=== PATIENT | female | born 1965 | race African-American/Black ===

== ENCOUNTER 2017-06-28 15:11 | Inpatient (IN) | payer BC ==
[~2017-06-28] VITALS: Ht 170.2 cm; Wt 119.0 kg
--- NOTE | 2017-06-28 15:37 | PHYS DOC ---
Adult General Chief Complaint Chief Complaint: SHORTNESS OF BREATH HPI HPI Patient is a 52 year old -[place]ese [place] female who presents with shortness of breath and intermittent chest pain. She states that she's being diagnosed with bronchitis 3 different times in the last 3 months and over the last several weeks she's been filling shortness of breath with a nonproductive cough. She states yesterday she started with substernal chest pain worse with coughing. She denies any nausea vomiting diaphoresis. She is having past medical history of smoking and stopped 6 years ago. She has had a stress test approximately 2 years ago she believes at the [facility]. Review of Systems Review of Systems Constitutional: Denies fever or chills [] Eyes: Denies change in visual acuity, redness, or eye pain [] HENT: Denies nasal congestion or sore throat [] Respiratory: Positive for cough and shortness of breath [] Cardiovascular: No additional information not addressed in HPI [] GI: Denies abdominal pain, nausea, vomiting, bloody stools or diarrhea [] : Denies dysuria or hematuria [] Musculoskeletal: Denies back pain or joint pain [] Integument: Denies rash or skin lesions [] Neurologic: Denies headache, focal weakness or sensory changes [] Endocrine: Denies polyuria or polydipsia [] Current Medications Current Medications Current Medications Medications (Trade) Dose Ordered Sig/Mabel Start Time Stop Time Status Last Admin Dose Admin Aspirin (Colby Aspirin) 325 mg 1X ONCE 06/28/17 17:45 06/28/17 17:46 DC 06/28/17 17:46 325 MG Info (Do NOT chart on this entry -- for MONITORING) 1 each PRN DAILY PRN 06/28/17 18:00 06/30/17 17:59 Iohexol (Omnipaque 350 Mg/ml) 75 ml 1X ONCE 06/28/17 17:45 06/28/17 17:46 DC Morphine Sulfate 2 mg PRN Q15MIN PRN 06/28/17 15:45 06/29/17 15:44 06/28/17 17:05 2 MG Allergies Allergies Allergies Coded Allergies Type Severity Reaction Last Updated Verified Penicillins Allergy Unknown SKIJNH RASH 06/28/17 Yes Sulfa (Sulfonamide Antibiotics) Allergy Unknown SKIN RASH 06/28/17 Yes amoxicillin Allergy Unknown SKIN RASH 06/28/17 Yes cephalexin Allergy Unknown SKIN RASH 06/28/17 Yes Physical Exam Physical Exam Constitutional: Well developed, well nourished, no acute distress, non-toxic appearance. [] HENT: Normocephalic, atraumatic, bilateral external ears normal, oropharynx moist, no oral exudates, nose normal. [] Eyes: PERRLA, EOMI, conjunctiva normal, no discharge. [] Neck: Normal range of motion, no tenderness, supple, no stridor. [] Cardiovascular:Heart rate regular rhythm, no murmur [] Lungs & Thorax: Bilateral breath sounds clear to auscultation [] Abdomen: Bowel sounds normal, soft, no tenderness, no masses, no pulsatile masses. [] Skin: Warm, dry, no erythema, no rash. [] Back: No tenderness, no CVA tenderness. [] Extremities: No tenderness, no cyanosis, no clubbing, ROM intact, no edema. [] Neurologic: Alert and oriented X 3, normal motor function, normal sensory function, no focal deficits noted. [] Psychologic: Affect normal, judgement normal, mood normal. [] Current Patient Data Vital Signs Vital Signs Date Time Temp Pulse Resp B/P (MAP) Pulse Ox O2 Delivery O2 Flow Rate FiO2 06/28/17 17:47 18 97 Room Air 06/28/17 15:16 98.2 91 165/82 (109) 98.2 Lab Values Laboratory Tests Test 06/28/17 15:50 White Blood Count 8.2 x10^3/uL (4.0-11.0) Red Blood Count 4.08 x10^6/uL (3.50-5.40) Hemoglobin 10.1 g/dL (12.0-15.5) L Hematocrit 31.3 % (36.0-47.0) L Mean Corpuscular Volume 77 fL (79-100) L Mean Corpuscular Hemoglobin 25 pg (25-35) Mean Corpuscular Hemoglobin Concent 32 g/dL (31-37) Red Cell Distribution Width 16.1 % (11.5-14.5) H Platelet Count 346 x10^3/uL (140-400) Neutrophils (%) (Auto) 39 % (31-73) Lymphocytes (%) (Auto) 49 % (24-48) H Monocytes (%) (Auto) 7 % (0-9) Eosinophils (%) (Auto) 4 % (0-3) H Basophils (%) (Auto) 2 % (0-3) Neutrophils # (Auto) 3.2 x10^3uL (1.8-7.7) Lymphocytes # (Auto) 4.0 x10^3/uL (1.0-4.8) Monocytes # (Auto) 0.5 x10^3/uL (0.0-1.1) Eosinophils # (Auto) 0.4 x10^3/uL (0.0-0.7) Basophils # (Auto) 0.1 x10^3/uL (0.0-0.2) Prothrombin Time 11.8 SEC (11.7-14.0) Prothrombin Time INR 0.9 (0.8-1.1) D-Dimer (Melanie) 1.74 ug/mlFEU (0.00-0.50) H Sodium Level 142 mmol/L (136-145) Potassium Level 3.8 mmol/L (3.5-5.1) Chloride Level 106 mmol/L (98-107) Carbon Dioxide Level 24 mmol/L (21-32) Anion Gap 12 (6-14) Blood Urea Nitrogen 11 mg/dL (7-20) Creatinine 1.0 mg/dL (0.6-1.0) Estimated GFR (Cockcroft-Gault) 70.2 Glucose Level 85 mg/dL (70-99) Calcium Level 9.1 mg/dL (8.5-10.1) Magnesium Level 1.7 mg/dL (1.8-2.4) L Total Bilirubin 0.5 mg/dL (0.2-1.0) Direct Bilirubin 0.1 mg/dL (0.0-0.2) Aspartate Amino Transferase (AST) 18 U/L (15-37) Alanine Aminotransferase (ALT) 30 U/L (14-59) Alkaline Phosphatase 87 U/L (46-116) Creatine Kinase 264 U/L (26-192) H Creatine Kinase MB (Mass) 3.1 ng/mL (0.0-3.6) Creatine Kinase MB Relative Index 1.2 % (0-4) Troponin I Quantitative 0.022 ng/mL (0.000-0.055) GS-Xtd-A-Type Natriuretic Peptide 817 pg/mL (0-124) H Total Protein 7.2 g/dL (6.4-8.2) Albumin 3.1 g/dL (3.4-5.0) L Lipase 137 U/L (73-393) Thyroid Stimulating Hormone (TSH) 2.062 uIU/mL (0.358-3.74) Laboratory Tests 06/28/17 15:50 Laboratory Tests 06/28/17 15:50 EKG EKG EKG shows sinus rhythm 3-[address] elevations, intraventricular block noted, T-wave inversions appreciated, normal axis, QTC 494 ms, QRS 172 ms , as interpreted by me. Radiology/Procedures Radiology/Procedures [facility] [address] [place] [address] IMAGING REPORT Signed PATIENT: NOAH NEUMANN ACCOUNT: [id number] : 1965 LOCATION: ER AGE: 52 SEX: F EXAM STATUS: PRE ER ORD. PHYSICIAN: ALLYSSA WAGONER MD REASON: SOA PROCEDURE: PORTABLE CHEST 1V Portable chest, 06/28/2017: History: Shortness of breath The heart size and pulmonary vascularity are normal. The lungs are clear. There is no evidence of pleural fluid. IMPRESSION: No acute cardiopulmonary abnormality is detected. DICTATED and SIGNED BY: FARHAT BRADEN MD DATE: 06/28/17 1544 CC: ALLYSSA WAGONER MD ~ Impressions: Chest pain Elevated d-dimer Course & Med Decision Making Course & Med Decision Making Pertinent Labs and Imaging studies reviewed. (See chart for details) EKG is nonacute, she does have left bundle branch morphology on EKG doesn't have any old ones. Dimer is elevated and she is awaiting CT angiogram performed. Patient be admitted to the hospitalist and aspirin has been given. Interim orders have been written. Dragon Disclaimer Dragon Disclaimer This electronic medical record was generated, in whole or in part, using a voice recognition dictation system. Departure Departure Impression: Primary Impression: Chest pain Disposition: ADMITTED INPATIENT Admitting Physician: Cely Garces Condition: STABLE Problem Qualifiers Primary Impression: Chest pain Chest pain type: unspecified Qualified Codes: R07.9 - Chest pain, unspecified ALLYSSA WAGONER MD Jun 28, 2017 15:37
--- NOTE | 2017-06-28 15:38 | EKG ---
[facility] [address] [place] [address] Test Date: 2017-06-28 Test Time: 15:28:06 Pat Name: NOAH NEUMANN Department: Room: Gender: F Manager Commercial: : 1965 Requested By: ALLYSSA WAGONER Order Number: [id number] Reading MD: Niranjan Burroughs Measurements Intervals [place] Rate: 87 P: 38 KS: 170 QRS: 6 QRSD: 172 T: 84 QT: 410 QTc: 494 Interpretive Statements SINUS RHYTHM LEFT BUNDLE BRANCH BLOCK RI6.01 Unconfirmed report No previous ECG available for comparison Electronically Signed On 06-28-2017 17:49:32 CDT by Niranjan Burroughs
--- NOTE | 2017-06-28 15:47 | RAD ---
Portable chest, 06/28/2017: History: Shortness of breath The heart size and pulmonary vascularity are normal. The lungs are clear. There is no evidence of pleural fluid. IMPRESSION: No acute cardiopulmonary abnormality is detected.
[2017-06-28 16:06] LABS: BASO # 0.1 x10^3/uL (0.0-0.2); BASO % 2 % (0-3); EOS % 4 % (0-3); HEMATOCRIT 31.3 % (36.0-47.0); HEMOGLOBIN 10.1 g/dL (12.0-15.5); LYMPH % 49 % (24-48); MEAN CORPUSCULAR HEMOGLOBIN 25 pg (25-35); MEAN CORPUSCULAR HGB CONC 32 g/dL (31-37); MEAN CORPUSCULAR VOLUME 77 fL (79-100); MONO % 7 % (0-9); NEUT % 39 % (31-73); PLATELET COUNT 346 x10^3/uL (140-400); RED BLOOD COUNT 4.08 x10^6/uL (3.50-5.40); RED CELL DISTRIBUTION WIDTH 16.1 % (11.5-14.5); WHITE BLOOD COUNT 8.2 x10^3/uL (4.0-11.0)
[2017-06-28] MEDS: MORPHINE SULFATE 2 MG/ML DISP.SYRIN. IV/SQ PRN ×2 (16:11→17:05)
[2017-06-28 16:15] LABS: INR 0.9 (0.8-1.1); PROTHROMBIN TIME PATIENT 11.8 SEC (11.7-14.0)
[2017-06-28 16:24] LABS: CALCIUM 9.1 mg/dL (8.5-10.1); GFR 70.2; POTASSIUM 3.8 mmol/L (3.5-5.1)
[2017-06-28 16:28] LABS: ALBUMIN 3.1 g/dL (3.4-5.0); DIRECT BILIRUBIN 0.1 mg/dL (0.0-0.2); MAGNESIUM 1.7 mg/dL (1.8-2.4); TOTAL BILIRUBIN 0.5 mg/dL (0.2-1.0); TOTAL PROTEIN 7.2 g/dL (6.4-8.2)
[2017-06-28 16:35] LABS: CKMB MASS 3.1 ng/mL (0.0-3.6)
[2017-06-28] MEDS ORDERED: ASPIRIN 325 MG TABLET PO ONE (17:45)
[2017-06-28] MEDS ORDERED: IOHEXOL 350 MG/ML 75ML VIAL. IV ONE (17:45)
[2017-06-28] MEDS ORDERED: CONTRAST GIVEN MC PRN (18:00)
[2017-06-28] MEDS ORDERED: MORPHINE SULFATE 2 MG/ML DISP.SYRIN. IV PRN (18:15)
[2017-06-28] MEDS ORDERED: ONDANSETRON PF 4 MG/2 ML VIAL. IV PRN (18:15)
[2017-06-28] MEDS ORDERED: IOHEXOL 350 MG/ML 100 ML VIAL. IV ONE (18:30)
--- NOTE | 2017-06-28 19:15 | RAD ---
Chest CTA History: Shortness of air, chest pain Technique: After bolus of intravenous contrast, CT imaging was performed of the chest. Multiplanar reconstruction images to include MIP reconstruction images are submitted. Exposure: One or more of the following individualized dose reduction techniques were utilized for this examination: 1. Automated exposure control 2. Adjustment of the mA and/or kV according to patient size 3. Use of iterative reconstruction technique. Contrast: 75 cc Isovue-370 Comparison: None Findings: [ Contrast opacification of the pulmonary arteries is suboptimal. There is suggestion of a small filling defect of subsegmental left lower lobe posterior basal branch as seen on axial image 75 series 3. There are small dependent pleural effusions bilaterally. There is no pneumothorax. Major airways are patent. Normal left kidney is not visualized on this exam. Thoracic aortic caliber is within normal limits without intraluminal flap. No significant lymphadenopathy is identified of the chest. There is possible 0.6 cm right lower lobe pulmonary nodule axial image 108 series 3. Impression: 1. Accurate evaluation for pulmonary embolic disease is limited due to poor contrast opacification of the pulmonary arteries. There is a questionable filling defect of subsegmental branch of the posterior basal left lower lobe although poorly characterized. Attempt at repeat exam or ventilation/perfusion exam could be beneficial if clinically needed. 2. There are small dependent pleural effusions bilaterally. 3. Normal left kidney is not seen on this exam. 4. There is possible small incidental right lower lobe pulmonary nodule up to 0.6 cm. 6-12 month follow-up is recommended as per Fleischner guidelines. FOR INTERNAL CODING PURPOSES Critical result: Findings discussed with Dr. Bowman at 06/28/2017 7:11 PM. RESULT CODE: (C) Electronically signed by: Ashok Hickman MD (06/28/2017 7:12 PM) [facility]
[2017-06-28 19:30] VITALS: BP 145/70
[2017-06-28] MEDS ORDERED: METF-620 PO (20:42)
[2017-06-28] MEDS ORDERED: INSU100I13 SQ (20:42)
[2017-06-28] MEDS ORDERED: MELO15TA23 PO (20:42)
[2017-06-28] MEDS ORDERED: INSU100V31 SQ (20:42)
[2017-06-28] MEDS ORDERED: SIMV10TA PO (20:42)
[2017-06-28] MEDS ORDERED: INSU100C4 SQ (20:42)
[2017-06-28] MEDS ORDERED: LEXAPRO20 MG PO (20:42)
[2017-06-28] MEDS ORDERED: ESOM40CA PO (20:42)
[2017-06-28] MEDS ORDERED: LISI40TA PO (20:42)
[2017-06-28] MEDS ORDERED: METF500T4 PO (20:42)
[2017-06-28] MEDS ORDERED: LACT1CAP6 PO (20:47)
[2017-06-28] MEDS ORDERED: HYDR-2762 PO (20:47)
[2017-06-28] MEDS ORDERED: LORA0.5T96 PO (20:47)
[2017-06-28] MEDS ORDERED: BIOT1CAP3 PO (20:47)
[2017-06-28] MEDS ORDERED: LORazepam 0.5 MG TABLET PO PRN (21:30)
[2017-06-28] MEDS ORDERED: NON FORMULARY ITEM (Biotin 1 MG) PO PRN (21:30)
[2017-06-28] MEDS ORDERED: HYDROcodone/CHLORPHEN POLIS 5 ML SUS.ER.12H PO PRN (21:30)
--- NOTE | 2017-06-28 21:34 | PDOC1 ---
History and Physical Date of Admission Date of Admission DATE: 06/28/17 TIME: 21:25 History of Present Illness History of Present Illness Ms. Bell, is a 52 year old -[place]ronesian [place]ron[place] female admit with with acute chest pain and shortness of breath. Over the past 2 days, intermittent chest pain mid-sternal with pressure. She starts her story in March with a cough, PCP gave her abx, then better, then cough, given Z-pack, then better, then another round of abx again due to cough. THen new worsening orthopnea this past week, up to 3 pillows, no LE edema, and new mid-sternal chest pain with pressure. diagnosed with bronchitis 3 different times in the last 3 months, her GERD has thought to been stable, EGD by Dr. Diop 2 years ago was clear, She denies any nausea vomiting diaphoresis. Past Medical History Cardiovascular: HTN Pulmonary: Bronchitis Endocrine: Diabetes Past Surgical History Past Surgical History: No pertinent history Family History Family History: Alzheimer's Disease, Diabetes, Hypertension Family History: Parent Social History Smoke: Quit ALCOHOL: rare Drugs: None Current Medications Current Medications Current Medications Morphine Sulfate 2 mg PRN Q15MIN PRN IV/SQ PAIN GREATER THAN 3/10 Last administered on 06/28/17 17:05; Start 06/28/17 at 15:45; Stop 06/29/17 at 15:44 Aspirin (Colby Aspirin) 325 mg 1X ONCE PO Last administered on 06/28/17 17:46 ; Start 06/28/17 at 17:45; Stop 06/28/17 at 17:46; Status DC Iohexol (Omnipaque 350 Mg/ml) 75 ml 1X ONCE IV Last administered on 06/28/17 17:45; Start 06/28/17 at 17:45; Stop 06/28/17 at 17:46; Status DC Info (Do NOT chart on this entry -- for MONITORING) 1 each PRN DAILY PRN MC SEE COMMENTS; Start 06/28/17 at 18:00; Stop 06/30/17 at 17:59 Ondansetron HCl (Zofran) 4 mg PRN Q8HRS PRN IV NAUSEA/VOMITING; Start 06/28/17 at 18:15; Stop 06/29/17 at 18:14 Morphine Sulfate 2 mg PRN Q2HR PRN IV PAIN; Start 06/28/17 at 18:15; Stop at 18:14 Iohexol (Omnipaque 350 Mg/ml) 75 ml 1X ONCE IV Last administered on 06/28/17t 18:47; Start 06/28/17 at 18:30; Stop 06/28/17 at 18:31; Status DC Pneumococcal Polyvalent Vaccine (Do NOT chart on this placeholder) 0.1 each 1X ONCE MC ; Start 06/29/17 at 09:00; Stop 06/29/17 at 09:01; Status UNV Pneumococcal Polyvalent Vaccine (Pneumovax 23) 0.5 ml ONCE ONCE VAX IM ; Start 06/29/17 at 09:00; Stop 06/29/17 at 09:01 Active Scripts Active Reported Probiotic (Lactobacillus Acidophilus) 1 Each Capsule 1 Each PO PRN DAILY PRN Biotin 1 Mg Capsule 1 Mg PO PRN DAILY PRN Ativan (Lorazepam) 0.5 Mg Tablet 0.5 Mg PO PRN BID PRN Hydrocodone-Apap 7.5-325 (Hydrocodone Bit/Acetaminophen) 1 Each Tablet 1 Tab PO PRN BID PRN Lexapro (Escitalopram Oxalate) 20 Mg Tablet 40 Mg PO HS Zocor (Simvastatin) 10 Mg Tablet 10 Mg PO HS Novolog (Insulin Aspart) 100 Unit/1 Ml Vial 10 Unit SQ HS Novolog (Insulin Aspart) 100 Unit/1 Ml Cartridge 15 Unit SQ TIDAC Meloxicam 15 Mg Tablet 15 Mg PO HS Lantus Solostar (Insulin Glargine,Hum.rec.anlog) 100 Unit/1 Ml Insuln.pen 85 Unit SQ HS Nexium Capsule (Esomeprazole Magnesium) 40 Mg Capsule.dr 1 Cap PO DAILY Lisinopril 40 Mg Tablet 1 Tab PO DAILY Metformin Hcl 500 Mg Tablet 500 Mg PO DAILY08 Metformin Hcl 1,000 Mg Tablet 1,000 Mg PO DAILYWBKFT Allergies Allergies: Coded Allergies: Penicillins (Verified Allergy, Unknown, SKIJNH RASH, 06/28/17) Sulfa (Sulfonamide Antibiotics) (Verified Allergy, Unknown, SKIN RASH, ) amoxicillin (Verified Allergy, Unknown, SKIN RASH, 06/28/17) cephalexin (Verified Allergy, Unknown, SKIN RASH, 06/28/17) ROS General: No: Chills, Night Sweats, Malaise, Appetite, Other PSYCHOLOGICAL ROS: No: Anxiety, Behavioral Disorder, Concentration difficultie , Decreased libido, Depression, Disorientation, Hallucinations, Hostility, Irritablity, Memory difficulties, Mood Swings, Obsessive thoughts, Physical abuse, Sexual abuse, Sleep disturbances, Suicidal ideation, Other Eyes: No Blurry vision, No Decreased vision, No Double vision, No Dry eyes, No Excessive tearing, No Eye Pain, No Itchy Eyes, No Loss of vision, No Photophobia , No Scotomata, No Uses contacts, No Uses glasses, No Other HEENT: No: Heacaches, Visual Changes, Hearing change, Nasal congestion, Nasal discharge, Oral lesions, Sinus pain, Sore Throat, Epistaxis, Sneezing, Snoring, Tinnitus, Vertigo, Vocal changes, Other Respiratory: YES: Cough, Orthopnea, SOB with excertion, No: Hemoptysis, Pleuritic Pain, Shortness of breath, Sputum Changes, Stridor , Tachypnea, Wheezing, Other Cardiovascular: yes Chest Pain, No Palpitations, No Orthopnea, No Paroxysmal Noc. Dyspnea, No Edema, No Lt Headedness, No Other Gastrointestinal: Yes Abdominal Pain, No Nausea, No Vomiting, No Diarrhea, No Constipation, No Melena, No Hematochezia, No Other Genitourinary: No Dysuria, No Frequency, No Incontinence, No Hematuria, No Retention, No Discharge, No Urgency, No Pain, No Flank Pain, No Other, No , No , No , No , No , No , No Musculoskeletal: No Gait Disturbance, No Joint Pain, No Joint Stiffness, No Joint Swelling, No Muscle Pain, No Muscular Weakness, No Pain In:, No Swelling In:, No Other Neurological: No Behavorial Changes, No Bowel/Bladder ControlChng, No Confusion , No Dizziness, No Gait Disturbance, No Headaches, No Impaired Coord/balance, No Memory Loss, No Numbness/Tingling, No Seizures, No Speech Problems, No Tremors, No Visual Changes, No Weakness, No Other Skin: No Dry Skin, No Eczema, No Hair Changes, No Lumps, No Mole Changes, No Mottling, No Nail Changes, No Pruritus, No Rash, No Skin Lesion Changes, No Other, No Acne Physical Exam General: Alert, Oriented X3, Cooperative HEENT: Atraumatic, PERRLA Lungs: Clear to auscultation Heart: S1S2 Abdomen: Normal bowel sounds, Soft (obese, mod tender epigastrum, no guarding) Extremities: No clubbing, No cyanosis Skin: No rashes, No breakdown Neuro: Normal speech, Normal tone, Sensation intact, Cranial nerves 3-12 NL Psych/Mental Status: Mental status NL, Mood NL Vitals Vitals Vital Signs Date Time Temp Pulse Resp B/P (MAP) Pulse Ox O2 Delivery O2 Flow Rate FiO2 06/28/17 19:30 97.9 84 18 145/70 (95) 98 Room Air 97.9 Labs Labs Laboratory Tests Test 06/28/17 15:50 White Blood Count 8.2 x10^3/uL (4.0-11.0) Red Blood Count 4.08 x10^6/uL (3.50-5.40) Hemoglobin 10.1 g/dL (12.0-15.5) Hematocrit 31.3 % (36.0-47.0) Mean Corpuscular Volume 77 fL (79-100) Mean Corpuscular Hemoglobin 25 pg (25-35) Mean Corpuscular Hemoglobin Concent 32 g/dL (31-37) Red Cell Distribution Width 16.1 % (11.5-14.5) Platelet Count 346 x10^3/uL (140-400) Neutrophils (%) (Auto) 39 % (31-73) Lymphocytes (%) (Auto) 49 % (24-48) Monocytes (%) (Auto) 7 % (0-9) Eosinophils (%) (Auto) 4 % (0-3) Basophils (%) (Auto) 2 % (0-3) Neutrophils # (Auto) 3.2 x10^3uL (1.8-7.7) Lymphocytes # (Auto) 4.0 x10^3/uL (1.0-4.8) Monocytes # (Auto) 0.5 x10^3/uL (0.0-1.1) Eosinophils # (Auto) 0.4 x10^3/uL (0.0-0.7) Basophils # (Auto) 0.1 x10^3/uL (0.0-0.2) Prothrombin Time 11.8 SEC (11.7-14.0) Prothromb Time International Ratio 0.9 (0.8-1.1) D-Dimer (Melanie) 1.74 ug/mlFEU (0.00-0.50) Sodium Level 142 mmol/L (136-145) Potassium Level 3.8 mmol/L (3.5-5.1) Chloride Level 106 mmol/L (98-107) Carbon Dioxide Level 24 mmol/L (21-32) Anion Gap 12 (6-14) Blood Urea Nitrogen 11 mg/dL (7-20) Creatinine 1.0 mg/dL (0.6-1.0) Estimated GFR (Cockcroft-Gault) 70.2 Glucose Level 85 mg/dL (70-99) Calcium Level 9.1 mg/dL (8.5-10.1) Magnesium Level 1.7 mg/dL (1.8-2.4) Total Bilirubin 0.5 mg/dL (0.2-1.0) Direct Bilirubin 0.1 mg/dL (0.0-0.2) Aspartate Amino Transf (AST/SGOT) 18 U/L (15-37) Alanine Aminotransferase (ALT/SGPT) 30 U/L (14-59) Alkaline Phosphatase 87 U/L (46-116) Creatine Kinase 264 U/L (26-192) Creatine Kinase MB (Mass) 3.1 ng/mL (0.0-3.6) Creatine Kinase MB Relative Index 1.2 % (0-4) Troponin I Quantitative 0.022 ng/mL (0.000-0.055) HT-Opk-V-Type Natriuretic Peptide 817 pg/mL (0-124) Total Protein 7.2 g/dL (6.4-8.2) Albumin 3.1 g/dL (3.4-5.0) Lipase 137 U/L (73-393) Thyroid Stimulating Hormone (TSH) 2.062 uIU/mL (0.358-3.74) Laboratory Tests Test 06/28/17 15:50 White Blood Count 8.2 x10^3/uL (4.0-11.0) Red Blood Count 4.08 x10^6/uL (3.50-5.40) Hemoglobin 10.1 g/dL (12.0-15.5) Hematocrit 31.3 % (36.0-47.0) Mean Corpuscular Volume 77 fL (79-100) Mean Corpuscular Hemoglobin 25 pg (25-35) Mean Corpuscular Hemoglobin Concent 32 g/dL (31-37) Red Cell Distribution Width 16.1 % (11.5-14.5) Platelet Count 346 x10^3/uL (140-400) Neutrophils (%) (Auto) 39 % (31-73) Lymphocytes (%) (Auto) 49 % (24-48) Monocytes (%) (Auto) 7 % (0-9) Eosinophils (%) (Auto) 4 % (0-3) Basophils (%) (Auto) 2 % (0-3) Neutrophils # (Auto) 3.2 x10^3uL (1.8-7.7) Lymphocytes # (Auto) 4.0 x10^3/uL (1.0-4.8) Monocytes # (Auto) 0.5 x10^3/uL (0.0-1.1) Eosinophils # (Auto) 0.4 x10^3/uL (0.0-0.7) Basophils # (Auto) 0.1 x10^3/uL (0.0-0.2) Prothrombin Time 11.8 SEC (11.7-14.0) Prothromb Time International Ratio 0.9 (0.8-1.1) D-Dimer (Melanie) 1.74 ug/mlFEU (0.00-0.50) Sodium Level 142 mmol/L (136-145) Potassium Level 3.8 mmol/L (3.5-5.1) Chloride Level 106 mmol/L (98-107) Carbon Dioxide Level 24 mmol/L (21-32) Anion Gap 12 (6-14) Blood Urea Nitrogen 11 mg/dL (7-20) Creatinine 1.0 mg/dL (0.6-1.0) Estimated GFR (Cockcroft-Gault) 70.2 Glucose Level 85 mg/dL (70-99) Calcium Level 9.1 mg/dL (8.5-10.1) Magnesium Level 1.7 mg/dL (1.8-2.4) Total Bilirubin 0.5 mg/dL (0.2-1.0) Direct Bilirubin 0.1 mg/dL (0.0-0.2) Aspartate Amino Transf (AST/SGOT) 18 U/L (15-37) Alanine Aminotransferase (ALT/SGPT) 30 U/L (14-59) Alkaline Phosphatase 87 U/L (46-116) Creatine Kinase 264 U/L (26-192) Creatine Kinase MB (Mass) 3.1 ng/mL (0.0-3.6) Creatine Kinase MB Relative Index 1.2 % (0-4) Troponin I Quantitative 0.022 ng/mL (0.000-0.055) JR-Bxh-O-Type Natriuretic Peptide 817 pg/mL (0-124) Total Protein 7.2 g/dL (6.4-8.2) Albumin 3.1 g/dL (3.4-5.0) Lipase 137 U/L (73-393) Thyroid Stimulating Hormone (TSH) 2.062 uIU/mL (0.358-3.74) VTE Prophylaxis Ordered VTE Prophylaxis Devices: No VTE Pharmacological Prophylaxi: Yes Assessment/Plan Assessment/Plan Angina, chest pain with dyspnea and orthopnea, consult CV, check Echo CTA negative consult pulm for chronic cough, GERD, could be exacerbating the cough, cont PPI, EGD was a couple years ago , may need outpatient f/u morbid obesity, BMI 41 Dm2, large doses on insulin depression, on SSRI anemia, microcytic, check iron levels, she reports normal colonoscopy 2 years ago admit FAISAL MALHOTRA MD Jun 28, 2017 21:34
[2017-06-28] MEDS ORDERED: MAGNESIUM SULFATE 2GM 50 ML IV ONE (21:45)
[2017-06-28] MEDS ORDERED: IPRATRPIUM/ALBUTEROL 0.5/2.5MG 3 ML NEBU. NEB ONE (21:45)
[2017-06-28] MEDS ORDERED: ENOXAPARIN 40 MG/0.4 ML SYRINGE. SQ SCH (22:00)
[2017-06-28] MEDS: HYDROcodone/APAP 7.5/325MG 1 TAB TABLET PO PRN (22:18)
[2017-06-28] MEDS: ESCITALOPRAM 10 MG TABLET. PO SCH (22:20)
[2017-06-28] MEDS: INSULIN DETEMIR 300 UNITS/3 ML INSULN.PEN. SQ SCH (22:39)
[2017-06-28] MEDS: INSULIN ASPART 300 UNITS/3 ML INSULN.PEN SQ SCH (22:39)
[2017-06-28 23:30] VITALS: BP 137/57
[2017-06-29] VITALS (7 sets, daily range): BP systolic 117–144; BP diastolic 56–73
--- NOTE | 2017-06-29 04:49 | ACF ---
Admission Forms Criteria CHEST PAIN Clinical Indications for Admission to Inpatient Care (Place 'X' for any and all applicable criteria): Admission is indicated for chest pain and ANY ONE of the following(1)(2)(3)(4)(5 ): [ ]I. Angina with acute coronary syndrome (Also use Myocardial Infarction or Angina guideline) [ ]II. Hemodynamic instability [ ]III. Angina needing acute intervention as indicated by ALL of the following( 11)(12): [ ]a) Unstable angina is present as indicated by angina that is ANY ONE of the following: [ ]i) New onset [ ]ii) Nocturnal [ ]iii) Prolonged at rest [ ]iv) Progressive [ ]b) Angina warrants acute intervention as indicated by ANY ONE of the following: [ ]i) Recurrent angina (e.g, not responding as previously to treatment) [ ]ii) Angina at rest or with low-level activities despite initial medical therapy [ ]iii) New or presumably new ST-segment depression on ECG [ ]iv) Signs or symptoms of heart failure (eg, dyspnea, pulmonary edema) [ ]v) New or worsening mitral regurgitation [ ]vi) Hemodynamic instability [ ]vii) Dangerous arrhythmia (eg, sustained ventricular tachycardia) [ ]viii) History of percutaneous coronary intervention within 6 months [ ]ix) History of coronary artery bypass graft surgery [ ]x) ALEXSANDER risk score of 2 or greater[A] [ ]xi) History of Diabetes(14) [ ]xii) High-risk cardiac ischemia findings on noninvasive testing (e.g, echocardiogram, treadmill testing, nuclear scan) [ ]xiii) Chronic renal insufficiency (ie, estimated GFR less than 60 mL/min/1.732m) [ ]xiv) Left ventricular ejection fraction less than 40% [ ]IV. Evidence of WI (eg, cardiac biomarkers positive, ST-segment elevation on ECG) also use Myocardial Infarction Criteria Form. [ ]V. Pulmonary edema [ ]. Respiratory distress [ ]VII. Chest pain indicative of serious diagnosis other than coronary artery disease (eg, aortic dissection) [ ]VIII. Contraindications and/or Inappropriate clinical situations for Observational Care in patients with Chest Pain, when ANY ONE of the following is required: [ ]a) Patient with risk factor for pulmonary embolism, acute coronary syndrome and myocardial infarction (18) [ ]b) Patient with Pulmonary embolism require an average LOS of 4.3 days, therefore emergency department observation management is inappropriate 18,23 [ ]c) Painful condition/s in the elderly, have the highest rate of recidivism after emergency department observation management (10.8%) 20,21,22 [ ]d) Elevated cardiac biomarker requires intensive and exhaustive care (19) [X]IX. General contraindications and/or Inappropriate clinical situations for Observational Care in patients with Chest Pain, when ANY ONE of the following is required: [X]a) Prediction of prolongation of LOS based on ANY ONE of the following may be considered as a contraindication for observational care 2, 3, 4, 5, 6, 7, 8, 9, 10, 11 [ ]i) Age > 65 yrs. [ ]ii) Patient arriving by ambulance [ ]iii) Patient with high acuity [X]iv) Patient requiring vital sign monitoring [ ]v) Patient on IV medication [ ]b) Systolic blood pressures 180mmHg 3,12 [ ]c) Patient with altered mental status including delirium and other alteration of consciousness, (3) [ ]d) Patient whose discharge disposition will be to a fdc home or rehabilitation home should not be managed in Emergency Department Observation Unit. CMS rule requires 3 days hospital stay before such placement. 3,13 [ ]e) Patient with failure to thrive due to broad array of etiologies 3,16,17 [ ]f) Inability to ambulate 3,14 Extended stay beyond goal length of stay may be needed for (1)(28): [ ]a) Specific condition diagnosed after evaluation (eg, pulmonary embolism, aortic dissection) [ ]b) Unstable angina [ ]c) Continued suspicion of acute coronary syndrome with inability to complete needed cardiac evaluation (eg, patient clinically unable to undergo stress testing) [ ]d) Myocardial infarction (Contents from ANGINA and CHEST PAIN clinical indications for admission to inpatient care have been integrated in this form) The original [email or web address] content created by [employer] has been revised. The portions of the content which have been revised are identified through the use of italic text or in bold, and [email or web address] has neither reviewed nor approved the modified material. All other unmodified content is copyright [email or web address]. Please see references footnoted in the original [email or web address] edition 2016 Admission Criteria Met?: Yes RAJ VILLALOBOS Jun 29, 2017 04:49
[2017-06-29 06:27] LABS: BASO # 0.1 x10^3/uL (0.0-0.2); BASO % 1 % (0-3); EOS % 5 % (0-3); HEMATOCRIT 29.9 % (36.0-47.0); HEMOGLOBIN 9.3 g/dL (12.0-15.5); LYMPH # 4.1 x10^3/uL (1.0-4.8); LYMPH % 50 % (24-48); MEAN CORPUSCULAR HEMOGLOBIN 25 pg (25-35); MEAN CORPUSCULAR HGB CONC 31 g/dL (31-37); MEAN CORPUSCULAR VOLUME 79 fL (79-100); MONO % 6 % (0-9); NEUT % 38 % (31-73); PLATELET COUNT 313 x10^3/uL (140-400); RED BLOOD COUNT 3.77 x10^6/uL (3.50-5.40); RED CELL DISTRIBUTION WIDTH 16.3 % (11.5-14.5); WHITE BLOOD COUNT 8.1 x10^3/uL (4.0-11.0)
[2017-06-29 06:46] LABS: CALCIUM 8.2 mg/dL (8.5-10.1); GFR 70.2; POTASSIUM 4.2 mmol/L (3.5-5.1)
[2017-06-29 06:53] LABS: % SAT IRON 9 % (15-34); IRON,SERUM 29 ug/dL (50-170)
[2017-06-29 07:03] LABS: CHOLESTEROL/HDL RATIO 4.1
[2017-06-29] MEDS: IPRATRPIUM/ALBUTEROL 0.5/2.5MG 3 ML NEBU. NEB SCH ×4 (07:50→19:42)
[2017-06-29] MEDS ORDERED: PNEUMOC CONJ VACC 23-VALENT 0.5 ML VIAL. VAX IM ONE (09:00)
[2017-06-29] MEDS ORDERED: PNEUMOCOCCAL VAX SCREEN BY RX. MC ONE (09:00)
[2017-06-29] MEDS: INSULIN ASPART 300 UNITS/3 ML INSULN.PEN SQ SCH ×4 (09:42→21:00)
[2017-06-29] MEDS: PANTOPRAZOLE 40 MG TABLET.DR. PO SCH (09:43)
[2017-06-29] MEDS: LISINOPRIL 40 MG TABLET. PO SCH (09:44)
--- NOTE | 2017-06-29 09:54 | PDOC2 ---
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 Reports that she just came back from [place] with [address] was no complain of leg pain, increased swelling. She is post menopausal without HRT, and denies any prior VTEs. When she was finally back, she reports that in the last few weeks her endurance has gone down. She thinks because she stopped exercising. She reports no bleeding history or PUD but notable for GERD. She has been coughing at night lately and she has been compliant with her PPI. No prior workup for sleep apnea. Positive for HTN, HLP , DM2, anemia and morbid obesity. In addition to persisting mid chest pressure she has been having KEYES which then progressed to SOA at rest. Denies no daily ASA due to use of meloxicam. She did have stress test in 2014 which did not show any issues that would warrant a LHC although she was told at that time that she has LBBB during the test. Denies any recent falls, injury. She also had recent sinusitis treated about 2 weeks ago with doxycycline with no steroid use. Denies any asthma or tobaccoism. No hx of CAD or any valvular disease. PAST MEDICAL HISTORY Cardiovascular: HTN, Hyperlipidemia Pulmonary: No pertinent hx CENTRAL NERVOUS SYSTEM: Other (No pertinent history) GI: GERD Heme/Onc: Anemia NOS Hepatobiliary: No pertinent hx Psych: Anxiety Musculoskeletal: Osteoarthritis, Other (morbid obesity) Rheumatologic: No pertinent hx Infectious disease: No pertinent hx ENT: Sincusitis, Allergic Rhinitis PAST SURGICAL HISTORY Past Surgical History: Tubal Ligation, Other (uterine ablation; EGD 2014 with gastritis) FAMILY HISTORY Family History: Diabetes (mother) SOCIAL HISTORY Smoke: No ALCOHOL: none Drugs: None Lives: with Family CURRENT MEDICATIONS CURRENT MEDICATIONS Current Medications Medications (Trade) Dose Ordered Sig/Mabel Route PRN Reason Start Time Stop Time Status Last Admin Dose Admin Morphine Sulfate 2 mg PRN Q15MIN PRN IV/SQ PAIN GREATER THAN 3/10 06/28/17 15:45 06/29/17 15:44 06/28/17 17:05 Aspirin (Colby Aspirin) 325 mg 1X ONCE PO 06/28/17 17:45 06/28/17 17:46 DC 06/28/17 17:46 Iohexol (Omnipaque 350 Mg/ml) 75 ml 1X ONCE IV 06/28/17 17:45 06/28/17 17:46 DC 06/28/17 17:45 Iohexol (Omnipaque 350 Mg/ml) 75 ml 1X ONCE IV 06/28/17 18:30 06/28/17 18:31 DC 06/28/17 18:47 Acetaminophen/ Hydrocodone Bitart (Lortab 7.5/325) 1 tab PRN BID PRN PO PAIN 06/28/17 21:30 06/28/17 22:18 Insulin Aspart (NovoLOG) 10 units HS SQ 06/28/17 22:00 06/28/17 22:39 Escitalopram Oxalate (Lexapro) 40 mg HS PO 06/28/17 22:00 06/28/17 22:20 Insulin Detemir (Levemir) 45 units QHS SQ 06/28/17 22:00 06/28/17 22:39 Magnesium Sulfate/ Dextrose 50 ml @ 25 mls/hr 1X ONCE IV 06/28/17 21:45 06/28/17 23:44 DC 06/28/17 22:17 Albuterol/ Ipratropium (Duoneb) 3 ml RTQID NEB 06/29/17 08:00 06/29/17 07:50 Albuterol/ Ipratropium (Duoneb) 3 ml 1X ONCE NEB 06/28/17 21:45 06/28/17 21:46 DC 06/28/17 22:07 Enoxaparin Sodium (Lovenox 40mg Syringe) 40 mg Q24H SQ 06/28/17 22:00 06/28/17 22:19 ALLERGIES ALLERGIES: Coded Allergies: Penicillins (Verified Allergy, Unknown, SKIN RASH, 06/29/17) Sulfa (Sulfonamide Antibiotics) (Verified Allergy, Unknown, SKIN RASH, ) amoxicillin (Verified Allergy, Unknown, SKIN RASH, 06/28/17) cephalexin (Verified Allergy, Unknown, SKIN RASH, 06/28/17) ROS Review of System 14 point ROS evaluated with pertinent positives noted per HPI PHYSICAL EXAM General: Alert, Oriented X3, Cooperative, No acute distress HEENT: Atraumatic, Mucous membr. moist/pink Lungs: Clear to auscultation, Normal air movement Heart: Regular rate (SR), Normal S1, Normal S2, Other (2/6 systolic murmur to SHANNAN and LLS border) Abdomen: Soft, Other (truncal obese) Extremities: No cyanosis, Other (1+ bilateral LE pitting edema) Skin: No breakdown, No significant lesion Neuro: Normal speech, Sensation intact Psych/Mental Status: Mental status NL, Mood NL MUSCULOSKELETAL: Osteoarthritic changes both hands VITALS VITALS Vital Signs Date Time Temp Pulse Resp B/P (MAP) Pulse Ox O2 Delivery O2 Flow Rate FiO2 06/29/17 07:50 97 Room Air 06/29/17 07:00 98.0 79 20 117/56 (76) 98.0 LABS Lab: Laboratory Tests Test 06/28/17 15:50 06/28/17 21:20 06/29/17 00:15 06/29/17 06:05 White Blood Count 8.2 x10^3/uL (4.0-11.0) 8.1 x10^3/uL (4.0-11.0) Red Blood Count 4.08 x10^6/uL (3.50-5.40) 3.77 x10^6/uL (3.50-5.40) Hemoglobin 10.1 g/dL (12.0-15.5) 9.3 g/dL (12.0-15.5) Hematocrit 31.3 % (36.0-47.0) 29.9 % (36.0-47.0) Mean Corpuscular Volume 77 fL (79-100) 79 fL (79-100) Mean Corpuscular Hemoglobin 25 pg (25-35) 25 pg (25-35) Mean Corpuscular Hemoglobin Concent 32 g/dL (31-37) 31 g/dL (31-37) Red Cell Distribution Width 16.1 % (11.5-14.5) 16.3 % (11.5-14.5) Platelet Count 346 x10^3/uL (140-400) 313 x10^3/uL (140-400) Neutrophils (%) (Auto) 39 % (31-73) 38 % (31-73) Lymphocytes (%) (Auto) 49 % (24-48) 50 % (24-48) Monocytes (%) (Auto) 7 % (0-9) 6 % (0-9) Eosinophils (%) (Auto) 4 % (0-3) 5 % (0-3) Basophils (%) (Auto) 2 % (0-3) 1 % (0-3) Neutrophils # (Auto) 3.2 x10^3uL (1.8-7.7) 3.1 x10^3uL (1.8-7.7) Lymphocytes # (Auto) 4.0 x10^3/uL (1.0-4.8) 4.1 x10^3/uL (1.0-4.8) Monocytes # (Auto) 0.5 x10^3/uL (0.0-1.1) 0.5 x10^3/uL (0.0-1.1) Eosinophils # (Auto) 0.4 x10^3/uL (0.0-0.7) 0.4 x10^3/uL (0.0-0.7) Basophils # (Auto) 0.1 x10^3/uL (0.0-0.2) 0.1 x10^3/uL (0.0-0.2) Prothrombin Time 11.8 SEC (11.7-14.0) Prothromb Time International Ratio 0.9 (0.8-1.1) D-Dimer (Melanie) 1.74 ug/mlFEU (0.00-0.50) Sodium Level 142 mmol/L (136-145) 139 mmol/L (136-145) Potassium Level 3.8 mmol/L (3.5-5.1) 4.2 mmol/L (3.5-5.1) Chloride Level 106 mmol/L (98-107) 106 mmol/L (98-107) Carbon Dioxide Level 24 mmol/L (21-32) 25 mmol/L (21-32) Anion Gap 12 (6-14) 8 (6-14) Blood Urea Nitrogen 11 mg/dL (7-20) 13 mg/dL (7-20) Creatinine 1.0 mg/dL (0.6-1.0) 1.0 mg/dL (0.6-1.0) Estimated GFR (Cockcroft-Gault) 70.2 70.2 Glucose Level 85 mg/dL (70-99) 152 mg/dL (70-99) Calcium Level 9.1 mg/dL (8.5-10.1) 8.2 mg/dL (8.5-10.1) Magnesium Level 1.7 mg/dL (1.8-2.4) Total Bilirubin 0.5 mg/dL (0.2-1.0) Direct Bilirubin 0.1 mg/dL (0.0-0.2) Aspartate Amino Transf (AST/SGOT) 18 U/L (15-37) Alanine Aminotransferase (ALT/SGPT) 30 U/L (14-59) Alkaline Phosphatase 87 U/L (46-116) Creatine Kinase 264 U/L (26-192) Creatine Kinase MB (Mass) 3.1 ng/mL (0.0-3.6) Creatine Kinase MB Relative Index 1.2 % (0-4) Troponin I Quantitative 0.022 ng/mL (0.000-0.055) 0.020 ng/mL (0.000-0.055) 0.028 ng/mL (0.000-0.055) RB-Cjn-L-Type Natriuretic Peptide 817 pg/mL (0-124) Total Protein 7.2 g/dL (6.4-8.2) Albumin 3.1 g/dL (3.4-5.0) Lipase 137 U/L (73-393) Thyroid Stimulating Hormone (TSH) 2.062 uIU/mL (0.358-3.74) Glucose (Fingerstick) 153 mg/dL (70-99) Iron Level 29 ug/dL (50-170) Total Iron Binding Capacity 315 ug/dL (250-450) Iron Saturation 9 % (15-34) Triglycerides Level 309 mg/dL (0-150) Cholesterol Level 145 mg/dL (0-200) LDL Cholesterol, Calculated 48 mg/dL (0-100) VLDL Cholesterol, Calculated 62 mg/dL (0-40) Non-HDL Cholesterol Calculated 110 mg/dL (0-129) HDL Cholesterol 35 mg/dL (40-60) Cholesterol/HDL Ratio 4.1 Test 06/29/17 07:58 Glucose (Fingerstick) 126 mg/dL (70-99) ASSESSMENT/PLAN ASSESSMENT/PLAN 1. CP: Probable unstable angina. Troponin normal, Positive for intermittent LBBB. Now with narrow QRS complex but with anteroseptal T wave inversion. 2. GERD 3. Chronic NSAID use: on meloxicam 15 mg daily 4. Microcytic anemia: Fe deficiency. Discussed with GI. This is chronic for her no endoscopy planned. 5. DM2/DLP: TG 300s. LDL 48 and HDL 35 6. HTN: controlled 7. Acute CHF with possible diastolic dysfunction: appears compensated 8. Morbid obesity Recommendations 1. TTE 2. Continue with secondary prevention and will reeval regimen post cath 3. Wt loss, diet modification, and continue lifestyle modifications 4. Would recommend decreasing and temporarily stopping meloxicam 5. ECASA. Discussed LHC, risks and benefits, and agreeable to proceed. 6. Dietitian consult. 7. Will need outpt SHANE workup. 8. Hold metformin in the next 48 hours. Problems: SUSHANT MATOS MD 06/29/17 1640: CARDIAC CONSULT ALLERGIES ALLERGIES: Coded Allergies: Penicillins (Verified Allergy, Unknown, SKIN RASH, 06/29/17) Sulfa (Sulfonamide Antibiotics) (Verified Allergy, Unknown, SKIN RASH, ) amoxicillin (Verified Allergy, Unknown, SKIN RASH, 06/28/17) cephalexin (Verified Allergy, Unknown, SKIN RASH, 06/28/17) ASSESSMENT/PLAN ASSESSMENT/PLAN Patient seen and examined. Agree with above nurse practitioner note. 52-year-old woman with atypical chest pain and new left bundle-branch block. Cardiac catheterization is unremarkable. No clear cardiac source of chest pain. Supportive care. Okay to discharge from a cardiac standpoint. We'll follow-up on an outpatient basis. Thank you for this consultation. Problems: JANET HUTSON APRN Jun 29, 2017 09:54 SUSHANT MATOS MD Jun 29, 2017 16:40
--- NOTE | 2017-06-29 10:14 | EKG ---
[facility] [address] [place] [address] Test Date: 2017-06-29 Test Time: 10:04:09 Pat Name: NOAH NEUMANN Department: Room: 209 1 Gender: F Tacker Off: MYKE : 1965 Requested By: JANET HUTSON Order Number: [id number] Reading MD: Niranjan Burroughs Measurements Intervals [place] Rate: 77 P: 49 FL: 180 QRS: -15 QRSD: 96 T: 52 QT: 398 QTc: 452 Interpretive Statements SINUS RHYTHM LEFTWARD AXIS CONSIDER LEFT VENTRICULAR HYPERTROPHY T ABNORMALITY IN ANTERIOR LEADS ABNORMAL ECG RI6.01 Compared to ECG 06/28/2017 15:28:06 Left-axis deviation now present T-wave abnormality now present Left bundle-branch block no longer present Electronically Signed On 06-29-2017 17:00:00 CDT by Niranjan Burroughs
[2017-06-29] MEDS ORDERED: IV NORMAL SALINE 1000ML BAG 1,000 ML IV ONE (10:45)
--- NOTE | 2017-06-29 10:48 | PDOC2 ---
GI CONSULT Reason For Consult: Chest pain/cough, h/o GERD HPI: HPI: 52 y/o with 2-3 day h/o chest pain; apparently not chronic problem. Describes sub-sternal pressure which radiates to subcostal area, maybe to interscapular area. Not clearly exertional. No home treatment tried. At least subjective dyspnea along with. Not known to have cardiac disease in the past other than LBBB (reviewing tracings with Niya, this may be a reversible finding). Long h /o heartburn, taking PPI for years (AM dosing with good timing) which by and large controls. No dysphagia or PUD. EGD ~2 years ago at [facility] ([facility]) and recalls maybe some "irritation". No h/o GB, liver or pancreatic disease. Former smoker. Occasional alcohol. Takes meloxicam daily (began after 'scopes in 2014). No persistent diarrhea or constipation. No overt blood in stool or melena. Wt/appetite OK. No GI family history. ZITA here; says long h/o "anemia ". Post-menopausal. Colonoscopy with the EGD recalled as unremarkable and no f /u exam recommended for 10 years. Has had troublesome cough since March. Various round of antibiotics for presumed sinusitis, bronchitis ineffective. No h/o asthma. PMH: PMH: DM-II, HTN, hyperlipidemia, SHANE, SUNNY, OA, cervical spinal stenosis, depression/ anxiety. FH: Family History: DM, Hypertension Social History: Smoke: Quit ALCOHOL: rare Drugs: None ROS: GEN: Denies fevers, chills, sweats HEENT: Denies blurred vision, sore throat CV: Per HPI RESP: Per HPI GI: Per HPI : Denies hematuria, dysuria ENDO: Denies weight changes NEURO: Denies confusion, dizziness MSK: Denies weakness, joint pain/swelling SKIN: Denies jaundice, pruritus Vitals: Vitals: Vital Signs Date Time Temp Pulse Resp B/P (MAP) Pulse Ox O2 Delivery O2 Flow Rate FiO2 06/29/17 09:44 74 117/56 06/29/17 07:50 97 Room Air 06/29/17 07:00 98.0 20 98.0 Labs: Labs: Laboratory Tests Test 06/28/17 15:50 06/28/17 21:20 06/29/17 00:15 8 06:05 White Blood Count 8.2 x10^3/uL (4.0-11.0) 8.1 x10^3/uL (4.0-11.0) Red Blood Count 4.08 x10^6/uL (3.50-5.40) 3.77 x10^6/uL (3.50-5.40) Hemoglobin 10.1 g/dL (12.0-15.5) 9.3 g/dL (12.0-15.5) Hematocrit 31.3 % (36.0-47.0) 29.9 % (36.0-47.0) Mean Corpuscular Volume 77 fL (79-100) 79 fL (79-100) Mean Corpuscular Hemoglobin 25 pg (25-35) 25 pg (25-35) Mean Corpuscular Hemoglobin Concent 32 g/dL (31-37) 31 g/dL (31-37) Red Cell Distribution Width 16.1 % (11.5-14.5) 16.3 % (11.5-14.5) Platelet Count 346 x10^3/uL (140-400) 313 x10^3/uL (140-400) Neutrophils (%) (Auto) 39 % (31-73) 38 % (31-73) Lymphocytes (%) (Auto) 49 % (24-48) 50 % (24-48) Monocytes (%) (Auto) 7 % (0-9) 6 % (0-9) Eosinophils (%) (Auto) 4 % (0-3) 5 % (0-3) Basophils (%) (Auto) 2 % (0-3) 1 % (0-3) Neutrophils # (Auto) 3.2 x10^3uL (1.8-7.7) 3.1 x10^3uL (1.8-7.7) Lymphocytes # (Auto) 4.0 x10^3/uL (1.0-4.8) 4.1 x10^3/uL (1.0-4.8) Monocytes # (Auto) 0.5 x10^3/uL (0.0-1.1) 0.5 x10^3/uL (0.0-1.1) Eosinophils # (Auto) 0.4 x10^3/uL (0.0-0.7) 0.4 x10^3/uL (0.0-0.7) Basophils # (Auto) 0.1 x10^3/uL (0.0-0.2) 0.1 x10^3/uL (0.0-0.2) Prothrombin Time 11.8 SEC (11.7-14.0) Prothromb Time International Ratio 0.9 (0.8-1.1) D-Dimer (Melanie) 1.74 ug/mlFEU (0.00-0.50) Sodium Level 142 mmol/L (136-145) 139 mmol/L (136-145) Potassium Level 3.8 mmol/L (3.5-5.1) 4.2 mmol/L (3.5-5.1) Chloride Level 106 mmol/L (98-107) 106 mmol/L (98-107) Carbon Dioxide Level 24 mmol/L (21-32) 25 mmol/L (21-32) Anion Gap 12 (6-14) 8 (6-14) Blood Urea Nitrogen 11 mg/dL (7-20) 13 mg/dL (7-20) Creatinine 1.0 mg/dL (0.6-1.0) 1.0 mg/dL (0.6-1.0) Estimated GFR (Cockcroft-Gault) 70.2 70.2 Glucose Level 85 mg/dL (70-99) 152 mg/dL (70-99) Calcium Level 9.1 mg/dL (8.5-10.1) 8.2 mg/dL (8.5-10.1) Magnesium Level 1.7 mg/dL (1.8-2.4) 2.2 mg/dL (1.8-2.4) Total Bilirubin 0.5 mg/dL (0.2-1.0) Direct Bilirubin 0.1 mg/dL (0.0-0.2) Aspartate Amino Transf (AST/SGOT) 18 U/L (15-37) Alanine Aminotransferase (ALT/SGPT) 30 U/L (14-59) Alkaline Phosphatase 87 U/L (46-116) Creatine Kinase 264 U/L (26-192) Creatine Kinase MB (Mass) 3.1 ng/mL (0.0-3.6) Creatine Kinase MB Relative Index 1.2 % (0-4) Troponin I Quantitative 0.022 ng/mL (0.000-0.055) 0.020 ng/mL (0.000-0.055) 0.028 ng/mL (0.000-0.055) DQ-[id number]-I-Type Natriuretic Peptide 817 pg/mL (0-124) Total Protein 7.2 g/dL (6.4-8.2) Albumin 3.1 g/dL (3.4-5.0) Lipase 137 U/L (73-393) Thyroid Stimulating Hormone (TSH) 2.062 uIU/mL (0.358-3.74) Glucose (Fingerstick) 153 mg/dL (70-99) Iron Level 29 ug/dL (50-170) Total Iron Binding Capacity 315 ug/dL (250-450) Iron Saturation 9 % (15-34) Triglycerides Level 309 mg/dL (0-150) Cholesterol Level 145 mg/dL (0-200) LDL Cholesterol, Calculated 48 mg/dL (0-100) VLDL Cholesterol, Calculated 62 mg/dL (0-40) Non-HDL Cholesterol Calculated 110 mg/dL (0-129) HDL Cholesterol 35 mg/dL (40-60) Cholesterol/HDL Ratio 4.1 Test 06/29/17 07:58 Glucose (Fingerstick) 126 mg/dL (70-99) Allergies: Coded Allergies: Penicillins (Verified Allergy, Unknown, SKIJNH RASH, 06/28/17) Sulfa (Sulfonamide Antibiotics) (Verified Allergy, Unknown, SKIN RASH, ) amoxicillin (Verified Allergy, Unknown, SKIN RASH, 06/28/17) cephalexin (Verified Allergy, Unknown, SKIN RASH, 06/28/17) Medications: Current Medications Medications (Trade) Dose Ordered Sig/Mabel Route PRN Reason Start Time Stop Time Status Last Admin Dose Admin Morphine Sulfate 2 mg PRN Q15MIN PRN IV/SQ PAIN GREATER THAN 3/10 06/28/17 15:45 06/29/17 15:44 06/28/17 17:05 Aspirin (Colby Aspirin) 325 mg 1X ONCE PO 06/28/17 17:45 06/28/17 17:46 DC 06/28/17 17:46 Iohexol (Omnipaque 350 Mg/ml) 75 ml 1X ONCE IV 06/28/17 17:45 06/28/17 17:46 DC 06/28/17 17:45 Iohexol (Omnipaque 350 Mg/ml) 75 ml 1X ONCE IV 06/28/17 18:30 06/28/17 18:31 DC 06/28/17 18:47 Pneumococcal Polyvalent Vaccine (Pneumovax 23) 0.5 ml ONCE ONCE VAX IM 06/29/17 09:00 06/29/17 09:01 DC 06/29/17 09:51 Acetaminophen/ Hydrocodone Bitart (Lortab 7.5/325) 1 tab PRN BID PRN PO PAIN 06/28/17 21:30 06/28/17 22:18 Insulin Aspart (NovoLOG) 10 units HS SQ 06/28/17 22:00 06/28/17 22:39 Lisinopril (Prinivil) 40 mg DAILY PO 06/29/17 09:00 06/29/17 09:44 Escitalopram Oxalate (Lexapro) 40 mg HS PO 06/28/17 22:00 06/28/17 22:20 Pantoprazole Sodium (Protonix) 40 mg DAILYAC PO 06/29/17 07:30 06/29/17 09:43 Insulin Detemir (Levemir) 45 units QHS SQ 06/28/17 22:00 06/28/17 22:39 Magnesium Sulfate/ Dextrose 50 ml @ 25 mls/hr 1X ONCE IV 06/28/17 21:45 06/28/17 23:44 DC 06/28/17 22:17 Albuterol/ Ipratropium (Duoneb) 3 ml RTQID NEB 06/29/17 08:00 06/29/17 07:50 Albuterol/ Ipratropium (Duoneb) 3 ml 1X ONCE NEB 06/28/17 21:45 06/28/17 21:46 DC 06/28/17 22:07 Enoxaparin Sodium (Lovenox 40mg Syringe) 40 mg Q24H SQ 06/28/17 22:00 06/28/17 22:19 Imaging: Imaging: On CTA: Impression: 1. Accurate evaluation for pulmonary embolic disease is limited due to poor contrast opacification of the pulmonary arteries. There is a questionable filling defect of subsegmental branch of the posterior basal left lower lobe although poorly characterized. Attempt at repeat exam or ventilation/perfusion exam could be beneficial if clinically needed. 2. There are small dependent pleural effusions bilaterally. 3. Normal left kidney is not seen on this exam. 4. There is possible small incidental right lower lobe pulmonary nodule up to 0.6 cm. 6-12 month follow-up is recommended as per Fleischner guidelines. --apparently felt essentially negative for PE. PE: GEN: NAD HEENT: Atraumatic, PERRLA LUNGS: CTAB HEART: RRR, no murmurs ABD: NABS, S/ND/NT, no masses EXTREMITY: No edema SKIN: No rashes, no jaundice NEURO/PSYCH: A & O 3 A/P: A/P: IMP: 1. Chest pain. Not the best story for angina, but multiple risk factors and reversible BBB on tracings which would bother me (unless rate-related). May also have reflux component. 2. GERD 3. ZITA--cause of this not clear, but recent enough scopes, not likely lesion in these areas. Would have some concern re: small bowel lesions from the MOBIC; was not taking this at the time of her EGD/colonoscopy. Don't have labs from then either. No technology available here to evaluate small bowel aside from barium study which is not likely to shed any lignt. 4. Cough; has arisen in the face of chronic PPI therapy. Not clear this would necessarily be from her GERD. No real test to prove or disprove from GERD other than response to therapy. Consider pulmonary source and/or possibility of intermittent pulmonary edema. REC: Continue PPI. Pursue cardiac w/u. Consider pulmonary opinion, particularly if cardiac w/u negative. --other pending. Thank you for allowing me to assist in the care of this patient. Please call if questions. KIESHA FRANCO MD Jun 29, 2017 10:47
--- NOTE | 2017-06-29 10:59 | PDOC ---
PROGRESS NOTES Chief Complaint Chief Complaint Angina, chest pain with dyspnea and orthopnea, left bundle branch block on EKG GERD, seems stable cont PPI, EGD was a couple years ago, morbid obesity, BMI 41 Dm2, large doses on insulin, excellent control while NPO this AM depression, on SSRI anemia, microcytic, iron level low, normal colonoscopy 2 years ago History of Present Illness History of Present Illness feels well, no pain calm, no anxiety CV consider for C today, echo pending, no ACS Vitals Vitals Vital Signs Date Time Temp Pulse Resp B/P (MAP) Pulse Ox O2 Delivery O2 Flow Rate FiO2 06/29/17 09:44 74 117/56 06/29/17 07:50 97 Room Air 06/29/17 07:00 98.0 20 98.0 Physical Exam General: Alert, Oriented X3, Cooperative, No acute distress Heart: Regular rate (SR), Normal S1, Normal S2, Other (2/6 systolic murmur to SHANNAN and LLS border) Abdomen: Soft, Other (truncal obese) Extremities: No cyanosis, Other (1+ bilateral LE pitting edema) Skin: No breakdown, No significant lesion Labs LABS Laboratory Tests Test 06/28/17 15:50 06/28/17 21:20 06/29/17 00:15 06/29/17 06:05 White Blood Count 8.2 x10^3/uL (4.0-11.0) 8.1 x10^3/uL (4.0-11.0) Red Blood Count 4.08 x10^6/uL (3.50-5.40) 3.77 x10^6/uL (3.50-5.40) Hemoglobin 10.1 g/dL (12.0-15.5) 9.3 g/dL (12.0-15.5) Hematocrit 31.3 % (36.0-47.0) 29.9 % (36.0-47.0) Mean Corpuscular Volume 77 fL (79-100) 79 fL (79-100) Mean Corpuscular Hemoglobin 25 pg (25-35) 25 pg (25-35) Mean Corpuscular Hemoglobin Concent 32 g/dL (31-37) 31 g/dL (31-37) Red Cell Distribution Width 16.1 % (11.5-14.5) 16.3 % (11.5-14.5) Platelet Count 346 x10^3/uL (140-400) 313 x10^3/uL (140-400) Neutrophils (%) (Auto) 39 % (31-73) 38 % (31-73) Lymphocytes (%) (Auto) 49 % (24-48) 50 % (24-48) Monocytes (%) (Auto) 7 % (0-9) 6 % (0-9) Eosinophils (%) (Auto) 4 % (0-3) 5 % (0-3) Basophils (%) (Auto) 2 % (0-3) 1 % (0-3) Neutrophils # (Auto) 3.2 x10^3uL (1.8-7.7) 3.1 x10^3uL (1.8-7.7) Lymphocytes # (Auto) 4.0 x10^3/uL (1.0-4.8) 4.1 x10^3/uL (1.0-4.8) Monocytes # (Auto) 0.5 x10^3/uL (0.0-1.1) 0.5 x10^3/uL (0.0-1.1) Eosinophils # (Auto) 0.4 x10^3/uL (0.0-0.7) 0.4 x10^3/uL (0.0-0.7) Basophils # (Auto) 0.1 x10^3/uL (0.0-0.2) 0.1 x10^3/uL (0.0-0.2) Prothrombin Time 11.8 SEC (11.7-14.0) Prothromb Time International Ratio 0.9 (0.8-1.1) D-Dimer (Melanie) 1.74 ug/mlFEU (0.00-0.50) Sodium Level 142 mmol/L (136-145) 139 mmol/L (136-145) Potassium Level 3.8 mmol/L (3.5-5.1) 4.2 mmol/L (3.5-5.1) Chloride Level 106 mmol/L (98-107) 106 mmol/L (98-107) Carbon Dioxide Level 24 mmol/L (21-32) 25 mmol/L (21-32) Anion Gap 12 (6-14) 8 (6-14) Blood Urea Nitrogen 11 mg/dL (7-20) 13 mg/dL (7-20) Creatinine 1.0 mg/dL (0.6-1.0) 1.0 mg/dL (0.6-1.0) Estimated GFR (Cockcroft-Gault) 70.2 70.2 Glucose Level 85 mg/dL (70-99) 152 mg/dL (70-99) Calcium Level 9.1 mg/dL (8.5-10.1) 8.2 mg/dL (8.5-10.1) Magnesium Level 1.7 mg/dL (1.8-2.4) 2.2 mg/dL (1.8-2.4) Total Bilirubin 0.5 mg/dL (0.2-1.0) Direct Bilirubin 0.1 mg/dL (0.0-0.2) Aspartate Amino Transf (AST/SGOT) 18 U/L (15-37) Alanine Aminotransferase (ALT/SGPT) 30 U/L (14-59) Alkaline Phosphatase 87 U/L (46-116) Creatine Kinase 264 U/L (26-192) Creatine Kinase MB (Mass) 3.1 ng/mL (0.0-3.6) Creatine Kinase MB Relative Index 1.2 % (0-4) Troponin I Quantitative 0.022 ng/mL (0.000-0.055) 0.020 ng/mL (0.000-0.055) 0.028 ng/mL (0.000-0.055) JV-Vww-P-Type Natriuretic Peptide 817 pg/mL (0-124) Total Protein 7.2 g/dL (6.4-8.2) Albumin 3.1 g/dL (3.4-5.0) Lipase 137 U/L (73-393) Thyroid Stimulating Hormone (TSH) 2.062 uIU/mL (0.358-3.74) Glucose (Fingerstick) 153 mg/dL (70-99) Iron Level 29 ug/dL (50-170) Total Iron Binding Capacity 315 ug/dL (250-450) Iron Saturation 9 % (15-34) Triglycerides Level 309 mg/dL (0-150) Cholesterol Level 145 mg/dL (0-200) LDL Cholesterol, Calculated 48 mg/dL (0-100) VLDL Cholesterol, Calculated 62 mg/dL (0-40) Non-HDL Cholesterol Calculated 110 mg/dL (0-129) HDL Cholesterol 35 mg/dL (40-60) Cholesterol/HDL Ratio 4.1 Test 06/29/17 07:58 Glucose (Fingerstick) 126 mg/dL (70-99) Review of Systems Review of Systems no n.v.d cough better Comment Review of Relevant I have reviewed the following items charly (where applicable) has been applied. Labs Laboratory Tests Test 06/28/17 15:50 06/28/17 21:20 06/29/17 00:15 06/29/17 06:05 White Blood Count 8.2 x10^3/uL (4.0-11.0) 8.1 x10^3/uL (4.0-11.0) Red Blood Count 4.08 x10^6/uL (3.50-5.40) 3.77 x10^6/uL (3.50-5.40) Hemoglobin 10.1 g/dL (12.0-15.5) 9.3 g/dL (12.0-15.5) Hematocrit 31.3 % (36.0-47.0) 29.9 % (36.0-47.0) Mean Corpuscular Volume 77 fL (79-100) 79 fL (79-100) Mean Corpuscular Hemoglobin 25 pg (25-35) 25 pg (25-35) Mean Corpuscular Hemoglobin Concent 32 g/dL (31-37) 31 g/dL (31-37) Red Cell Distribution Width 16.1 % (11.5-14.5) 16.3 % (11.5-14.5) Platelet Count 346 x10^3/uL (140-400) 313 x10^3/uL (140-400) Neutrophils (%) (Auto) 39 % (31-73) 38 % (31-73) Lymphocytes (%) (Auto) 49 % (24-48) 50 % (24-48) Monocytes (%) (Auto) 7 % (0-9) 6 % (0-9) Eosinophils (%) (Auto) 4 % (0-3) 5 % (0-3) Basophils (%) (Auto) 2 % (0-3) 1 % (0-3) Neutrophils # (Auto) 3.2 x10^3uL (1.8-7.7) 3.1 x10^3uL (1.8-7.7) Lymphocytes # (Auto) 4.0 x10^3/uL (1.0-4.8) 4.1 x10^3/uL (1.0-4.8) Monocytes # (Auto) 0.5 x10^3/uL (0.0-1.1) 0.5 x10^3/uL (0.0-1.1) Eosinophils # (Auto) 0.4 x10^3/uL (0.0-0.7) 0.4 x10^3/uL (0.0-0.7) Basophils # (Auto) 0.1 x10^3/uL (0.0-0.2) 0.1 x10^3/uL (0.0-0.2) Prothrombin Time 11.8 SEC (11.7-14.0) Prothromb Time International Ratio 0.9 (0.8-1.1) D-Dimer (Melanie) 1.74 ug/mlFEU (0.00-0.50) Sodium Level 142 mmol/L (136-145) 139 mmol/L (136-145) Potassium Level 3.8 mmol/L (3.5-5.1) 4.2 mmol/L (3.5-5.1) Chloride Level 106 mmol/L (98-107) 106 mmol/L (98-107) Carbon Dioxide Level 24 mmol/L (21-32) 25 mmol/L (21-32) Anion Gap 12 (6-14) 8 (6-14) Blood Urea Nitrogen 11 mg/dL (7-20) 13 mg/dL (7-20) Creatinine 1.0 mg/dL (0.6-1.0) 1.0 mg/dL (0.6-1.0) Estimated GFR (Cockcroft-Gault) 70.2 70.2 Glucose Level 85 mg/dL (70-99) 152 mg/dL (70-99) Calcium Level 9.1 mg/dL (8.5-10.1) 8.2 mg/dL (8.5-10.1) Magnesium Level 1.7 mg/dL (1.8-2.4) 2.2 mg/dL (1.8-2.4) Total Bilirubin 0.5 mg/dL (0.2-1.0) Direct Bilirubin 0.1 mg/dL (0.0-0.2) Aspartate Amino Transf (AST/SGOT) 18 U/L (15-37) Alanine Aminotransferase (ALT/SGPT) 30 U/L (14-59) Alkaline Phosphatase 87 U/L (46-116) Creatine Kinase 264 U/L (26-192) Creatine Kinase MB (Mass) 3.1 ng/mL (0.0-3.6) Creatine Kinase MB Relative Index 1.2 % (0-4) Troponin I Quantitative 0.022 ng/mL (0.000-0.055) 0.020 ng/mL (0.000-0.055) 0.028 ng/mL (0.000-0.055) BM-Ren-Z-Type Natriuretic Peptide 817 pg/mL (0-124) Total Protein 7.2 g/dL (6.4-8.2) Albumin 3.1 g/dL (3.4-5.0) Lipase 137 U/L (73-393) Thyroid Stimulating Hormone (TSH) 2.062 uIU/mL (0.358-3.74) Glucose (Fingerstick) 153 mg/dL (70-99) Iron Level 29 ug/dL (50-170) Total Iron Binding Capacity 315 ug/dL (250-450) Iron Saturation 9 % (15-34) Triglycerides Level 309 mg/dL (0-150) Cholesterol Level 145 mg/dL (0-200) LDL Cholesterol, Calculated 48 mg/dL (0-100) VLDL Cholesterol, Calculated 62 mg/dL (0-40) Non-HDL Cholesterol Calculated 110 mg/dL (0-129) HDL Cholesterol 35 mg/dL (40-60) Cholesterol/HDL Ratio 4.1 Test 06/29/17 07:58 Glucose (Fingerstick) 126 mg/dL (70-99) Laboratory Tests Test 06/28/17 15:50 06/28/17 21:20 06/29/17 00:15 06/29/17 06:05 White Blood Count 8.2 x10^3/uL (4.0-11.0) 8.1 x10^3/uL (4.0-11.0) Red Blood Count 4.08 x10^6/uL (3.50-5.40) 3.77 x10^6/uL (3.50-5.40) Hemoglobin 10.1 g/dL (12.0-15.5) 9.3 g/dL (12.0-15.5) Hematocrit 31.3 % (36.0-47.0) 29.9 % (36.0-47.0) Mean Corpuscular Volume 77 fL (79-100) 79 fL (79-100) Mean Corpuscular Hemoglobin 25 pg (25-35) 25 pg (25-35) Mean Corpuscular Hemoglobin Concent 32 g/dL (31-37) 31 g/dL (31-37) Red Cell Distribution Width 16.1 % (11.5-14.5) 16.3 % (11.5-14.5) Platelet Count 346 x10^3/uL (140-400) 313 x10^3/uL (140-400) Neutrophils (%) (Auto) 39 % (31-73) 38 % (31-73) Lymphocytes (%) (Auto) 49 % (24-48) 50 % (24-48) Monocytes (%) (Auto) 7 % (0-9) 6 % (0-9) Eosinophils (%) (Auto) 4 % (0-3) 5 % (0-3) Basophils (%) (Auto) 2 % (0-3) 1 % (0-3) Neutrophils # (Auto) 3.2 x10^3uL (1.8-7.7) 3.1 x10^3uL (1.8-7.7) Lymphocytes # (Auto) 4.0 x10^3/uL (1.0-4.8) 4.1 x10^3/uL (1.0-4.8) Monocytes # (Auto) 0.5 x10^3/uL (0.0-1.1) 0.5 x10^3/uL (0.0-1.1) Eosinophils # (Auto) 0.4 x10^3/uL (0.0-0.7) 0.4 x10^3/uL (0.0-0.7) Basophils # (Auto) 0.1 x10^3/uL (0.0-0.2) 0.1 x10^3/uL (0.0-0.2) Prothrombin Time 11.8 SEC (11.7-14.0) Prothromb Time International Ratio 0.9 (0.8-1.1) D-Dimer (Melanie) 1.74 ug/mlFEU (0.00-0.50) Sodium Level 142 mmol/L (136-145) 139 mmol/L (136-145) Potassium Level 3.8 mmol/L (3.5-5.1) 4.2 mmol/L (3.5-5.1) Chloride Level 106 mmol/L (98-107) 106 mmol/L (98-107) Carbon Dioxide Level 24 mmol/L (21-32) 25 mmol/L (21-32) Anion Gap 12 (6-14) 8 (6-14) Blood Urea Nitrogen 11 mg/dL (7-20) 13 mg/dL (7-20) Creatinine 1.0 mg/dL (0.6-1.0) 1.0 mg/dL (0.6-1.0) Estimated GFR (Cockcroft-Gault) 70.2 70.2 Glucose Level 85 mg/dL (70-99) 152 mg/dL (70-99) Calcium Level 9.1 mg/dL (8.5-10.1) 8.2 mg/dL (8.5-10.1) Magnesium Level 1.7 mg/dL (1.8-2.4) 2.2 mg/dL (1.8-2.4) Total Bilirubin 0.5 mg/dL (0.2-1.0) Direct Bilirubin 0.1 mg/dL (0.0-0.2) Aspartate Amino Transf (AST/SGOT) 18 U/L (15-37) Alanine Aminotransferase (ALT/SGPT) 30 U/L (14-59) Alkaline Phosphatase 87 U/L (46-116) Creatine Kinase 264 U/L (26-192) Creatine Kinase MB (Mass) 3.1 ng/mL (0.0-3.6) Creatine Kinase MB Relative Index 1.2 % (0-4) Troponin I Quantitative 0.022 ng/mL (0.000-0.055) 0.020 ng/mL (0.000-0.055) 0.028 ng/mL (0.000-0.055) BR-Ofj-H-Type Natriuretic Peptide 817 pg/mL (0-124) Total Protein 7.2 g/dL (6.4-8.2) Albumin 3.1 g/dL (3.4-5.0) Lipase 137 U/L (73-393) Thyroid Stimulating Hormone (TSH) 2.062 uIU/mL (0.358-3.74) Glucose (Fingerstick) 153 mg/dL (70-99) Iron Level 29 ug/dL (50-170) Total Iron Binding Capacity 315 ug/dL (250-450) Iron Saturation 9 % (15-34) Triglycerides Level 309 mg/dL (0-150) Cholesterol Level 145 mg/dL (0-200) LDL Cholesterol, Calculated 48 mg/dL (0-100) VLDL Cholesterol, Calculated 62 mg/dL (0-40) Non-HDL Cholesterol Calculated 110 mg/dL (0-129) HDL Cholesterol 35 mg/dL (40-60) Cholesterol/HDL Ratio 4.1 Test 06/29/17 07:58 Glucose (Fingerstick) 126 mg/dL (70-99) Medications Current Medications Morphine Sulfate 2 mg PRN Q15MIN PRN IV/SQ PAIN GREATER THAN 3/10 Last administered on 06/28/17 17:05; Start 06/28/17 at 15:45; Stop 06/29/17 at 15:44 Aspirin (Colby Aspirin) 325 mg 1X ONCE PO Last administered on 06/28/17 17:46 ; Start 06/28/17 at 17:45; Stop 06/28/17 at 17:46; Status DC Iohexol (Omnipaque 350 Mg/ml) 75 ml 1X ONCE IV Last administered on 06/28/17 17:45; Start 06/28/17 at 17:45; Stop 06/28/17 at 17:46; Status DC Info (Do NOT chart on this entry -- for MONITORING) 1 each PRN DAILY PRN MC SEE COMMENTS; Start 06/28/17 at 18:00; Stop 06/30/17 at 17:59 Ondansetron HCl (Zofran) 4 mg PRN Q8HRS PRN IV NAUSEA/VOMITING; Start 06/28/17 at 18:15; Stop 06/29/17 at 18:14 Morphine Sulfate 2 mg PRN Q2HR PRN IV PAIN; Start 06/28/17 at 18:15; Stop at 18:14 Iohexol (Omnipaque 350 Mg/ml) 75 ml 1X ONCE IV Last administered on 06/28/17 18:47; Start 06/28/17 at 18:30; Stop 06/28/17 at 18:31; Status DC Pneumococcal Polyvalent Vaccine (Do NOT chart on this placeholder) 0.1 each 1X ONCE MC ; Start 06/29/17 at 09:00; Stop 06/29/17 at 09:01; Status UNV Pneumococcal Polyvalent Vaccine (Pneumovax 23) 0.5 ml ONCE ONCE VAX IM Last administered on 06/29/17 09:51; Start 06/29/17 at 09:00; Stop 06/29/17 at 09:01; Status DC Acetaminophen/ Hydrocodone Bitart (Lortab 7.5/325) 1 tab PRN BID PRN PO PAIN Last administered on 06/28/17 22:18; Start 06/28/17 at 21:30 Insulin Aspart (NovoLOG) 10 units HS SQ Last administered on 06/28/17 22:39; Start 06/28/17 at 22:00 Lisinopril (Prinivil) 40 mg DAILY PO Last administered on 06/29/17 09:44; Start 06/29/17 at 09:00 Lorazepam (Ativan) 0.5 mg PRN BID PRN PO ANXIETY; Start 06/28/17 at 21:30 Simvastatin (Zocor) 10 mg HS PO ; Start 06/29/17 at 21:00 Non-Formulary Medication 1 mg PRN DAILY PRN PO GI SYMPTOMS; Start 06/28/17 at 21:30; Status UNV Escitalopram Oxalate (Lexapro) 40 mg HS PO Last administered on 06/28/17 22:20 ; Start 06/28/17 at 22:00 Pantoprazole Sodium (Protonix) 40 mg DAILYAC PO Last administered on 06/29/17 09:43; Start 06/29/17 at 07:30 Insulin Aspart (NovoLOG) 15 units TIDAC SQ ; Start 06/29/17 at 07:30 Insulin Detemir (Levemir) 45 units QHS SQ Last administered on 06/28/17 22:39 ; Start 06/28/17 at 22:00 Enoxaparin Sodium (Lovenox Per Pharmacy Prophylaxis Dosing) 1 each PRN DAILY PRN MC SEE COMMENTS; Start 06/28/17 at 22:00 Magnesium Sulfate/ Dextrose 50 ml @ 25 mls/hr 1X ONCE IV Last administered on 06/28/17 22:17; Start 06/28/17 at 21:45; Stop 06/28/17 at 23:44; Status DC Chlorphenir/ Hydrocodone Polistirex (Tussionex) 5 ml PRN Q12HR PRN PO COUGH; Start 06/28/17 at 21:30 Albuterol/ Ipratropium (Duoneb) 3 ml RTQID NEB Last administered on 06/29/17 07 :50; Start 06/29/17 at 08:00 Albuterol/ Ipratropium (Duoneb) 3 ml 1X ONCE NEB Last administered on 22:07; Start 06/28/17 at 21:45; Stop 06/28/17 at 21:46; Status DC Enoxaparin Sodium (Lovenox 40mg Syringe) 40 mg Q24H SQ Last administered on 22:19; Start 06/28/17 at 22:00 Aspirin (Ecotrin) 81 mg DAILYWBKFT PO ; Start 06/29/17 at 11:00 Active Scripts Active Reported Probiotic (Lactobacillus Acidophilus) 1 Each Capsule 1 Each PO PRN DAILY PRN Biotin 1 Mg Capsule 1 Mg PO PRN DAILY PRN Ativan (Lorazepam) 0.5 Mg Tablet 0.5 Mg PO PRN BID PRN Hydrocodone-Apap 7.5-325 (Hydrocodone Bit/Acetaminophen) 1 Each Tablet 1 Tab PO PRN BID PRN Lexapro (Escitalopram Oxalate) 20 Mg Tablet 40 Mg PO HS Zocor (Simvastatin) 10 Mg Tablet 10 Mg PO HS Novolog (Insulin Aspart) 100 Unit/1 Ml Vial 10 Unit SQ HS Novolog (Insulin Aspart) 100 Unit/1 Ml Cartridge 15 Unit SQ TIDAC Meloxicam 15 Mg Tablet 15 Mg PO HS Lantus Solostar (Insulin Glargine,Hum.rec.anlog) 100 Unit/1 Ml Insuln.pen 85 Unit SQ HS Nexium Capsule (Esomeprazole Magnesium) 40 Mg Capsule. 1 Cap PO DAILY Lisinopril 40 Mg Tablet 1 Tab PO DAILY Metformin Hcl 500 Mg Tablet 500 Mg PO DAILY08 Metformin Hcl 1,000 Mg Tablet 1,000 Mg PO DAILYWBKFT Vitals/I & O Vital Sign - Last 24 Hours 06/28/17 06/28/17 06/28/17 06/28/17 15:16 16:00 16:11 16:30 Temp 98.2 98.2 Pulse 91 86 78 Resp 20 24 18 B/P (MAP) 165/82 (109) 157/73 (101) 150/70 (96) Pulse Ox 98 95 97 O2 Delivery Room Air Room Air Room Air 06/28/17 06/28/17 06/28/17 06/28/17 17:00 17:05 17:30 17:47 Pulse 78 78 Resp 17 13 17 18 B/P (MAP) 147/70 (95) 148/69 (95) Pulse Ox 98 96 97 97 O2 Delivery Room Air Room Air Room Air Room Air 06/28/17 06/28/17 06/28/17 06/28/17 18:00 19:30 19:30 20:00 Temp 97.9 97.9 97.9 97.9 Pulse 78 84 84 Resp 18 18 18 B/P (MAP) 134/63 (86) 145/70 (95) 145/70 (95) Pulse Ox 94 98 98 O2 Delivery Room Air Room Air Room Air Room Air 06/28/17 06/28/17 06/29/17 06/29/17 22:10 23:30 03:00 07:00 Temp 97.9 98.1 98.0 97.9 98.1 98.0 Pulse 92 80 79 Resp 20 18 20 B/P (MAP) 137/57 (83) 136/63 (87) 117/56 (76) Pulse Ox 97 96 97 O2 Delivery Room Air Room Air Room Air 06/29/17 06/29/17 07:50 09:44 Pulse 74 B/P (MAP) 117/56 Pulse Ox 97 O2 Delivery Room Air Intake and Output 06/28/17 06/28/17 06/29/17 15:00 23:00 07:00 Intake Total 480 ml Output Total 500 ml Balance -20 ml FAISAL MALHOTRA MD Jun 29, 2017 10:59
[2017-06-29] MEDS: ASPIRIN ENTERIC COATED 81 MG TABLET.DR. PO SCH (11:10)
[2017-06-29] MEDS ORDERED: LIDOCAINE 2% 20 ML VIAL. ONE (12:17)
[2017-06-29] MEDS ORDERED: IODIXANOL 320 MG/ML 100 ML VIAL. ONE (12:18)
[2017-06-29] MEDS ORDERED: MIDAZOLAM HCL/PF 5 MG/5 ML VIAL. ONE (12:42)
[2017-06-29] MEDS ORDERED: VERAPAMIL 5 MG/2 ML VIAL. ONE (12:42)
[2017-06-29] MEDS ORDERED: NITROGLYCERIN 200 MCG/2 ML SYRINGE FOR CATH/VASC LAB. ONE (12:42)
[2017-06-29] MEDS ORDERED: fentaNYL PF VIAL 100 MCG/2 ML VIAL ONE (12:42)
[2017-06-29] MEDS ORDERED: HEPARIN for IV BOLUS 10,000 UNIT/10 ML VIAL. ONE (12:42)
[2017-06-29] MEDS ORDERED: MIDAZOLAM HCL/PF 5 MG/5 ML VIAL. IV ONE (13:00)
[2017-06-29] MEDS ORDERED: fentaNYL PF VIAL 100 MCG/2 ML VIAL IV ONE (13:00)
[2017-06-29] MEDS ORDERED: VERAPAMIL 5 MG/2 ML VIAL. IART ONE (13:00)
[2017-06-29] MEDS ORDERED: IODIXANOL 320 MG/ML 100 ML VIAL. IART ONE (13:00)
[2017-06-29] MEDS ORDERED: LIDOCAINE 2% 20 ML VIAL. IJ ONE (13:00)
[2017-06-29] MEDS ORDERED: HEPARIN for IV BOLUS 10,000 UNIT/10 ML VIAL. IART ONE (13:00)
[2017-06-29] MEDS ORDERED: NITROGLYCERIN 200 MCG/2 ML SYRINGE FOR CATH/VASC LAB. IART ONE (13:00)
[2017-06-29] MEDS ORDERED: CONTRAST GIVEN MC PRN (13:15)
--- NOTE | 2017-06-29 14:32 | CARD ---
APPROVED REPORT Procedure(s) performed: Left Heart Catherization Sedation Time: 30 minutes HISTORY The patient is a 52 year-old female with a history of : hypertension, dyslipidemia. INDICATION The indication(s) include : atypical chest pain , dyspnea, Transient LBBB. CASE TECHNIQUE During this case, Fluoroscopy and low osmolar contrast were used for imaging. PROCEDURE NARRATIVE The patient was brought electively to the cardiac catheterization lab. A timeout was performed confi rming the patient's name, date of , procedure, and site of procedure. All necessary personnel w ere wearing the appropriate protective equipment and radiation monitor devices. After explaining the risks and benefits of the procedure and alternatives, informed consent was obtained. (See nursing no sara for medications administered). The right wrist was sterilely prepped and draped in the usual fas hion. The right wrist was infiltrated with 1 mL of 2% lidocaine for subcutaneous anesthesia. A 6 Fr ench Terumo glide sheath was inserted into the right radial artery without difficulty. Right and lef t coronary angiography was performed using a 6Fr JR4 and JL3.5 catheters. Left ventricular end diast olic pressure was obtained with a pigtail catheter and pullback was performed after left ventriculogr aphy. All catheter exchanges and advancements were performed over a guidewire. At case completion t he right radial sheath was removed and a Terumo radial band was applied with 13 ml of air. The patie nt tolerated the procedure well and there were no immediate complications. HEMODYNAMICS: LVEDP 18 mm Hg No gradient on LV to aortic pullback. LEFT VENTRICULOGRAM: EF 55% Anterobasal: Normal. Anterolateral: Normal Apical: Normal Diaphragmatic: Normal Posterobasal: Normal CORONARY ANGIOGRAPHY: LM is a large caliber vessel with normal angiographic appearance. LAD is a large caliber vessel with normal angiographic appearance. Ramus is a moderate caliber vessel with normal angiographic apeparance. LCx is a moderate caliber non-dominant vessel with normal angiographic appearance. OM1 is a moderate caliber vessel with normal angiographic appearance. RCA is a large caliber dominant vessel with normal angiographic appearance. RPDA and RPL are moderate caliber vessels with normal angiographic appearance. Conclusion 1. No significant obstructive coronary disease. 2. Normal LV function. Recommendations Aggressive Medical Therapy
--- NOTE | 2017-06-29 14:41 | CARD ---
APPROVED REPORT EXAM: Two-dimensional and M-mode echocardiogram with Doppler and color Doppler. Other Information Quality : Good INDICATION Abnormal ECG Chest Pain LBBB 2D DIMENSIONS RVDd2.5 (2.9-3.5cm)Left Atrium(2D)4.0 (1.6-4.0cm) IVSd1.4 (0.7-1.1cm)Aortic Root(2D)2.6 (2.0-3.7cm) LVDd5.0 (3.9-5.9cm)LVOT Diameter2.0 (1.8-2.4cm) PWd1.3 (0.7-1.1cm)LVDs3.9 (2.5-4.0cm) FS (%) 21.1 %SV50.0 ml LVEF(%)42.7 (>50%) Aortic Valve AoV Peak Mariusz.173.3cm/sAoV VTI32.7cm AO Peak GR.12.0mmHgLVOT VTI 20.97cm AO Mean GR.6mmHg Mitral Valve MV E Nfninjdv600.4cm/sMV DECEL [id number] MV A Pryazvba98.2cm/sE/A Ratio1.2 TDI Lateral E' P. V5.02cm/sMedial E' P. V5.86cm/s E/Lateral E'22.2E/Medial E'19.0 Tricuspid Valve TR P. Pixjgybc902hh/sRAP [id number] TR Peak Gr.[id number] Pulmonary Vein S1 Pehkwoff54.2cm/sS2 Lulwnbkl63.05cm/s D2 Zqbbzaae13.0cm/s LEFT VENTRICLE The left ventricle is normal size. There is mild concentric left ventricular hypertrophy. The Ejectio n Fraction is low normal. EF 50-55%. Septal motion consistent with conduction abnormality. Otherwise, wall motion not able to be ascertained due to poor image quality. Transmitral Doppler flow pattern i s Grade I-abnormal relaxation pattern. RIGHT VENTRICLE The right ventricle is normal size. The right ventricular systolic function is normal. ATRIA The left atrium is mildly dilated. The right atrium size is normal. The interatrial septum is intact with no evidence for an atrial septal defect or patent foramen ovale as noted on 2-D or Doppler imagi ng. AORTIC VALVE The aortic valve is not well visualized. Doppler and Color Flow revealed no significant aortic regurg itation. There is no significant aortic valvular stenosis. MITRAL VALVE The mitral valve is not well visualized. There is no evidence of mitral valve prolapse. There is no m itral valve stenosis. Doppler and Color-flow revealed trace mitral regurgitation. TRICUSPID VALVE The tricuspid valve is normal in structure and function. There is no tricuspid valve stenosis. PULMONIC VALVE There is no pulmonic valvular stenosis. GREAT VESSELS The aortic root is normal in size. The ascending aorta is normal in size. The IVC is normal in size a nd collapses >50% with inspiration. PERICARDIAL EFFUSION There is no evidence of significant pericardial effusion. Critical Notification Critical Value: No <Conclusion> The Ejection Fraction is low normal. EF 50-55%. Septal motion consistent with conduction abnormality. Otherwise, wall motion not able to be ascertain ed due to poor image quality. Technically difficult study.
--- NOTE | 2017-06-29 16:44 | PDOC ---
PULMONARY PROGRESS NOTES Vitals Vital Signs Date Time Temp Pulse Resp B/P (MAP) Pulse Ox O2 Delivery O2 Flow Rate FiO2 06/29/17 16:13 100 Room Air 06/29/17 15:00 97.5 84 18 141/73 (95) 97.5 Labs Laboratory Tests Test 06/28/17 15:50 06/28/17 21:20 06/29/17 00:15 06/29/17 06:05 White Blood Count 8.2 x10^3/uL (4.0-11.0) 8.1 x10^3/uL (4.0-11.0) Red Blood Count 4.08 x10^6/uL (3.50-5.40) 3.77 x10^6/uL (3.50-5.40) Hemoglobin 10.1 g/dL (12.0-15.5) 9.3 g/dL (12.0-15.5) Hematocrit 31.3 % (36.0-47.0) 29.9 % (36.0-47.0) Mean Corpuscular Volume 77 fL (79-100) 79 fL (79-100) Mean Corpuscular Hemoglobin 25 pg (25-35) 25 pg (25-35) Mean Corpuscular Hemoglobin Concent 32 g/dL (31-37) 31 g/dL (31-37) Red Cell Distribution Width 16.1 % (11.5-14.5) 16.3 % (11.5-14.5) Platelet Count 346 x10^3/uL (140-400) 313 x10^3/uL (140-400) Neutrophils (%) (Auto) 39 % (31-73) 38 % (31-73) Lymphocytes (%) (Auto) 49 % (24-48) 50 % (24-48) Monocytes (%) (Auto) 7 % (0-9) 6 % (0-9) Eosinophils (%) (Auto) 4 % (0-3) 5 % (0-3) Basophils (%) (Auto) 2 % (0-3) 1 % (0-3) Neutrophils # (Auto) 3.2 x10^3uL (1.8-7.7) 3.1 x10^3uL (1.8-7.7) Lymphocytes # (Auto) 4.0 x10^3/uL (1.0-4.8) 4.1 x10^3/uL (1.0-4.8) Monocytes # (Auto) 0.5 x10^3/uL (0.0-1.1) 0.5 x10^3/uL (0.0-1.1) Eosinophils # (Auto) 0.4 x10^3/uL (0.0-0.7) 0.4 x10^3/uL (0.0-0.7) Basophils # (Auto) 0.1 x10^3/uL (0.0-0.2) 0.1 x10^3/uL (0.0-0.2) Prothrombin Time 11.8 SEC (11.7-14.0) Prothromb Time International Ratio 0.9 (0.8-1.1) D-Dimer (Melanie) 1.74 ug/mlFEU (0.00-0.50) Sodium Level 142 mmol/L (136-145) 139 mmol/L (136-145) Potassium Level 3.8 mmol/L (3.5-5.1) 4.2 mmol/L (3.5-5.1) Chloride Level 106 mmol/L (98-107) 106 mmol/L (98-107) Carbon Dioxide Level 24 mmol/L (21-32) 25 mmol/L (21-32) Anion Gap 12 (6-14) 8 (6-14) Blood Urea Nitrogen 11 mg/dL (7-20) 13 mg/dL (7-20) Creatinine 1.0 mg/dL (0.6-1.0) 1.0 mg/dL (0.6-1.0) Estimated GFR (Cockcroft-Gault) 70.2 70.2 Glucose Level 85 mg/dL (70-99) 152 mg/dL (70-99) Calcium Level 9.1 mg/dL (8.5-10.1) 8.2 mg/dL (8.5-10.1) Magnesium Level 1.7 mg/dL (1.8-2.4) 2.2 mg/dL (1.8-2.4) Total Bilirubin 0.5 mg/dL (0.2-1.0) Direct Bilirubin 0.1 mg/dL (0.0-0.2) Aspartate Amino Transf (AST/SGOT) 18 U/L (15-37) Alanine Aminotransferase (ALT/SGPT) 30 U/L (14-59) Alkaline Phosphatase 87 U/L (46-116) Creatine Kinase 264 U/L (26-192) Creatine Kinase MB (Mass) 3.1 ng/mL (0.0-3.6) Creatine Kinase MB Relative Index 1.2 % (0-4) Troponin I Quantitative 0.022 ng/mL (0.000-0.055) 0.020 ng/mL (0.000-0.055) 0.028 ng/mL (0.000-0.055) RL-Uju-G-Type Natriuretic Peptide 817 pg/mL (0-124) Total Protein 7.2 g/dL (6.4-8.2) Albumin 3.1 g/dL (3.4-5.0) Lipase 137 U/L (73-393) Thyroid Stimulating Hormone (TSH) 2.062 uIU/mL (0.358-3.74) Glucose (Fingerstick) 153 mg/dL (70-99) Iron Level 29 ug/dL (50-170) Total Iron Binding Capacity 315 ug/dL (250-450) Iron Saturation 9 % (15-34) Triglycerides Level 309 mg/dL (0-150) Cholesterol Level 145 mg/dL (0-200) LDL Cholesterol, Calculated 48 mg/dL (0-100) VLDL Cholesterol, Calculated 62 mg/dL (0-40) Non-HDL Cholesterol Calculated 110 mg/dL (0-129) HDL Cholesterol 35 mg/dL (40-60) Cholesterol/HDL Ratio 4.1 Test 06/29/17 07:58 Glucose (Fingerstick) 126 mg/dL (70-99) Laboratory Tests Test 06/28/17 21:20 06/29/17 00:15 06/29/17 06:05 06/29/17 07:58 Glucose (Fingerstick) 153 mg/dL (70-99) 126 mg/dL (70-99) Troponin I Quantitative 0.020 ng/mL (0.000-0.055) 0.028 ng/mL (0.000-0.055) White Blood Count 8.1 x10^3/uL (4.0-11.0) Red Blood Count 3.77 x10^6/uL (3.50-5.40) Hemoglobin 9.3 g/dL (12.0-15.5) Hematocrit 29.9 % (36.0-47.0) Mean Corpuscular Volume 79 fL (79-100) Mean Corpuscular Hemoglobin 25 pg (25-35) Mean Corpuscular Hemoglobin Concent 31 g/dL (31-37) Red Cell Distribution Width 16.3 % (11.5-14.5) Platelet Count 313 x10^3/uL (140-400) Neutrophils (%) (Auto) 38 % (31-73) Lymphocytes (%) (Auto) 50 % (24-48) Monocytes (%) (Auto) 6 % (0-9) Eosinophils (%) (Auto) 5 % (0-3) Basophils (%) (Auto) 1 % (0-3) Neutrophils # (Auto) 3.1 x10^3uL (1.8-7.7) Lymphocytes # (Auto) 4.1 x10^3/uL (1.0-4.8) Monocytes # (Auto) 0.5 x10^3/uL (0.0-1.1) Eosinophils # (Auto) 0.4 x10^3/uL (0.0-0.7) Basophils # (Auto) 0.1 x10^3/uL (0.0-0.2) Sodium Level 139 mmol/L (136-145) Potassium Level 4.2 mmol/L (3.5-5.1) Chloride Level 106 mmol/L (98-107) Carbon Dioxide Level 25 mmol/L (21-32) Anion Gap 8 (6-14) Blood Urea Nitrogen 13 mg/dL (7-20) Creatinine 1.0 mg/dL (0.6-1.0) Estimated GFR (Cockcroft-Gault) 70.2 Glucose Level 152 mg/dL (70-99) Calcium Level 8.2 mg/dL (8.5-10.1) Magnesium Level 2.2 mg/dL (1.8-2.4) Iron Level 29 ug/dL (50-170) Total Iron Binding Capacity 315 ug/dL (250-450) Iron Saturation 9 % (15-34) Triglycerides Level 309 mg/dL (0-150) Cholesterol Level 145 mg/dL (0-200) LDL Cholesterol, Calculated 48 mg/dL (0-100) VLDL Cholesterol, Calculated 62 mg/dL (0-40) Non-HDL Cholesterol Calculated 110 mg/dL (0-129) HDL Cholesterol 35 mg/dL (40-60) Cholesterol/HDL Ratio 4.1 Medications Active Scripts Medications Dose Route/Sig Max Daily Dose Days Date Category Probiotic (Lactobacillus Acidophilus) 1 Each Capsule 1 Each PO PRN DAILY PRN 06/28/17 Reported Biotin 1 Mg Capsule 1 Mg PO PRN DAILY PRN 06/28/17 Reported Ativan (Lorazepam) 0.5 Mg Tablet 0.5 Mg PO PRN BID PRN 06/28/17 Reported Hydrocodone-Apap 7.5-325 (Hydrocodone Bit/Acetaminophen) 1 Each Tablet 1 Tab PO PRN BID PRN 06/28/17 Reported Lexapro (Escitalopram Oxalate) 20 Mg Tablet 40 Mg PO HS 06/28/17 Reported Zocor (Simvastatin) 10 Mg Tablet 10 Mg PO HS 06/28/17 Reported Novolog (Insulin Aspart) 100 Unit/1 Ml Vial 10 Unit SQ HS 06/28/17 Reported Novolog (Insulin Aspart) 100 Unit/1 Ml Cartridge 15 Unit SQ TIDAC 06/28/17 Reported Meloxicam 15 Mg Tablet 15 Mg PO HS 06/28/17 Reported Lantus Solostar (Insulin Glargine,Hum.rec.anlog) 100 Unit/1 Ml Insuln.pen 85 Unit SQ HS 06/28/17 Reported Nexium Capsule (Esomeprazole Magnesium) 40 Mg Capsule. 1 Cap PO DAILY 06/28/17 Reported Lisinopril 40 Mg Tablet 1 Tab PO DAILY 06/28/17 Reported Metformin Hcl 500 Mg Tablet 500 Mg PO DAILY08 06/28/17 Reported Metformin Hcl 1,000 Mg Tablet 1,000 Mg PO DAILYWBKFT 06/28/17 Reported Impression . full consult dictated aecopd clinical suspicion for PE is low will check venous Doppler to complete work up d/c in am 6 min walk possible sleep study as outpr PHOEBE CHI MD Jun 29, 2017 16:44
[2017-06-29] MEDS ORDERED: SIMVASTATIN 10 MG TABLET PO SCH (21:00)
[2017-06-29] MEDS: ENOXAPARIN 40 MG/0.4 ML SYRINGE. SQ SCH (21:00)
[2017-06-29] MEDS: ESCITALOPRAM 10 MG TABLET. PO SCH (21:36)
[2017-06-29] MEDS: HYDROcodone/APAP 7.5/325MG 1 TAB TABLET PO PRN (21:37)
[2017-06-29] MEDS: INSULIN DETEMIR 300 UNITS/3 ML INSULN.PEN. SQ SCH (21:40)
--- NOTE | 2017-06-30 01:18 | CONS ---
DATE OF CONSULTATION: 06/29/2017 ATTENDING PHYSICIAN: Dr. Garces. REASON FOR CONSULTATION: The patient seen in pulmonary consultation at the request of Dr. Garces for increasing shortness of breath, wheeze and cough. HISTORY OF PRESENT ILLNESS: The patient is a 52-year-old, who smoked for approximately 30 years 1 pack of cigarettes a day and quit 6 years ago. She also has some allergies, came in with increasing shortness of breath, cough with productive of discolored sputum. No fever, chills or night sweats. She normally uses albuterol on a p.r.n. basis. No oxygen at home. She had a cardiac catheterization earlier today, revealing no significant obstructive coronary disease, normal LV function. PAST MEDICAL HISTORY: COPD, tobacco use in remission, obesity, allergies, postnasal drainage, gastroesophageal reflux, hypertension and diabetes. PAST SURGICAL HISTORY: No recent surgeries. FAMILY HISTORY: Remarkable for diabetes, hypertension and Alzheimer's. SOCIAL HISTORY: She quit tobacco 6 years ago. She is RN instructor. ALLERGIES: LISTED TO PENICILLIN, SULFA, AMOXICILLIN AND CEPHALEXIN. REVIEW OF SYSTEMS: As indicated above, otherwise, a 10-point system was reviewed and negative. PHYSICAL EXAMINATION: GENERAL: Morbid obese individual with a body mass index of 41. VITAL SIGNS: Stable. O2 saturation greater than 92%, currently on room air. HEENT: Eyes, the sclerae were nonicteric. NECK: Jugular venous distention was not elevated. No lymphadenopathy. CHEST: Full expansion. LUNGS: Coarse breath sounds, no wheezes. CARDIOVASCULAR: Regular rate and rhythm with S1, S2, no S3. ABDOMEN: Soft, nontender, nondistended. EXTREMITIES: No clubbing, cyanosis or pitting edema. NEUROLOGIC: The patient was awake, alert, following commands. A detailed neuro exam was not performed. LABORATORY DATA: Reviewed. CT angiogram was likewise reviewed, poor quality study, there was no central pulmonary emboli. CT was reviewed, a poor quality study, there was no significant central pulmonary emboli. There are small bilateral pleural effusions ____ incidental 6 mm right lower lobe pulmonary nodule. Echocardiogram was reviewed cardiac catheterization, left ventricular cardiac catheterization was likewise reviewed. Echocardiogram showed ejection fraction of 50%-55%, pulmonary artery pressures were not estimated. IMPRESSION: 1. Progressive dyspnea secondary to exacerbation of chronic obstructive pulmonary disease. 2. Acute nonspecific bronchitis. 3. Bilateral pleural effusion, suspect mild diastolic heart failure. 4. Clinical suspicion for pulmonary embolism is low. We will obtain venous Dopplers of lower extremities. 5. Pulmonary nodule, repeat CT in 6 months. 6. Obesity. 7. Tobacco dependence. PLAN: 1. Recommend continue diuresis. 2. Discharged home on the combination of long-acting bronchodilator and steroid such as Symbicort or Advair. 3. Treat acute bronchitis. 4. Venous Dopplers of lower extremities. 5. Flonase and Zyrtec [id number] for allergies and allergic rhinitis. I do appreciate the privilege in sharing in the patient's care. PHOEBE CHI MD DR: KARAN/sherry JOB#: [id number] / [id number]
[2017-06-30 02:55] VITALS: BP 136/66
[2017-06-30 07:15] VITALS: BP 124/58
--- NOTE | 2017-06-30 07:15 | RAD ---
Bilateral lower extremity venous ultrasound, 06/29/2017 History: Shortness of breath Duplex evaluation of the deep veins in the lower extremities was performed including grayscale, color-flow and spectral Doppler analysis. The femoral and popliteal veins demonstrate normal compressibility and normal responses to distal augmentation maneuvers. Color imaging of those vessels shows no evidence of intraluminal clot. The visualized deep veins in both calves are patent. IMPRESSION: There is no sonographic evidence of deep vein thrombosis in either lower extremity.
[2017-06-30] MEDS: IPRATRPIUM/ALBUTEROL 0.5/2.5MG 3 ML NEBU. NEB SCH ×2 (07:55→12:09)
[2017-06-30] MEDS: LISINOPRIL 40 MG TABLET. PO SCH (08:31)
[2017-06-30] MEDS: ASPIRIN ENTERIC COATED 81 MG TABLET.DR. PO SCH (08:31)
[2017-06-30] MEDS: PANTOPRAZOLE 40 MG TABLET.DR. PO SCH (08:31)
[2017-06-30] MEDS: ENOXAPARIN 40 MG/0.4 ML SYRINGE. SQ SCH (08:32)
[2017-06-30] MEDS: INSULIN ASPART 300 UNITS/3 ML INSULN.PEN SQ SCH ×2 (08:34→12:59)
[2017-06-30] MEDS ORDERED: predniSONE 10 MG TABLET PO SCH (09:00)
--- NOTE | 2017-06-30 10:15 | PDOC ---
PULMONARY PROGRESS NOTES Vitals Vital Signs Date Time Temp Pulse Resp B/P (MAP) Pulse Ox O2 Delivery O2 Flow Rate FiO2 06/30/17 08:31 87 124/58 06/30/17 07:58 Room Air 06/30/17 07:15 98.0 20 96 98.0 Labs Laboratory Tests Test 06/28/17 15:50 06/28/17 21:20 06/29/17 00:15 06/29/17 06:05 White Blood Count 8.2 x10^3/uL (4.0-11.0) 8.1 x10^3/uL (4.0-11.0) Red Blood Count 4.08 x10^6/uL (3.50-5.40) 3.77 x10^6/uL (3.50-5.40) Hemoglobin 10.1 g/dL (12.0-15.5) 9.3 g/dL (12.0-15.5) Hematocrit 31.3 % (36.0-47.0) 29.9 % (36.0-47.0) Mean Corpuscular Volume 77 fL (79-100) 79 fL (79-100) Mean Corpuscular Hemoglobin 25 pg (25-35) 25 pg (25-35) Mean Corpuscular Hemoglobin Concent 32 g/dL (31-37) 31 g/dL (31-37) Red Cell Distribution Width 16.1 % (11.5-14.5) 16.3 % (11.5-14.5) Platelet Count 346 x10^3/uL (140-400) 313 x10^3/uL (140-400) Neutrophils (%) (Auto) 39 % (31-73) 38 % (31-73) Lymphocytes (%) (Auto) 49 % (24-48) 50 % (24-48) Monocytes (%) (Auto) 7 % (0-9) 6 % (0-9) Eosinophils (%) (Auto) 4 % (0-3) 5 % (0-3) Basophils (%) (Auto) 2 % (0-3) 1 % (0-3) Neutrophils # (Auto) 3.2 x10^3uL (1.8-7.7) 3.1 x10^3uL (1.8-7.7) Lymphocytes # (Auto) 4.0 x10^3/uL (1.0-4.8) 4.1 x10^3/uL (1.0-4.8) Monocytes # (Auto) 0.5 x10^3/uL (0.0-1.1) 0.5 x10^3/uL (0.0-1.1) Eosinophils # (Auto) 0.4 x10^3/uL (0.0-0.7) 0.4 x10^3/uL (0.0-0.7) Basophils # (Auto) 0.1 x10^3/uL (0.0-0.2) 0.1 x10^3/uL (0.0-0.2) Prothrombin Time 11.8 SEC (11.7-14.0) Prothromb Time International Ratio 0.9 (0.8-1.1) D-Dimer (Melanie) 1.74 ug/mlFEU (0.00-0.50) Sodium Level 142 mmol/L (136-145) 139 mmol/L (136-145) Potassium Level 3.8 mmol/L (3.5-5.1) 4.2 mmol/L (3.5-5.1) Chloride Level 106 mmol/L (98-107) 106 mmol/L (98-107) Carbon Dioxide Level 24 mmol/L (21-32) 25 mmol/L (21-32) Anion Gap 12 (6-14) 8 (6-14) Blood Urea Nitrogen 11 mg/dL (7-20) 13 mg/dL (7-20) Creatinine 1.0 mg/dL (0.6-1.0) 1.0 mg/dL (0.6-1.0) Estimated GFR (Cockcroft-Gault) 70.2 70.2 Glucose Level 85 mg/dL (70-99) 152 mg/dL (70-99) Calcium Level 9.1 mg/dL (8.5-10.1) 8.2 mg/dL (8.5-10.1) Magnesium Level 1.7 mg/dL (1.8-2.4) 2.2 mg/dL (1.8-2.4) Total Bilirubin 0.5 mg/dL (0.2-1.0) Direct Bilirubin 0.1 mg/dL (0.0-0.2) Aspartate Amino Transf (AST/SGOT) 18 U/L (15-37) Alanine Aminotransferase (ALT/SGPT) 30 U/L (14-59) Alkaline Phosphatase 87 U/L (46-116) Creatine Kinase 264 U/L (26-192) Creatine Kinase MB (Mass) 3.1 ng/mL (0.0-3.6) Creatine Kinase MB Relative Index 1.2 % (0-4) Troponin I Quantitative 0.022 ng/mL (0.000-0.055) 0.020 ng/mL (0.000-0.055) 0.028 ng/mL (0.000-0.055) SG-Nyz-S-Type Natriuretic Peptide 817 pg/mL (0-124) Total Protein 7.2 g/dL (6.4-8.2) Albumin 3.1 g/dL (3.4-5.0) Lipase 137 U/L (73-393) Thyroid Stimulating Hormone (TSH) 2.062 uIU/mL (0.358-3.74) Glucose (Fingerstick) 153 mg/dL (70-99) Hemoglobin A1c 7.6 % (4.8-5.6) Iron Level 29 ug/dL (50-170) Total Iron Binding Capacity 315 ug/dL (250-450) Iron Saturation 9 % (15-34) Triglycerides Level 309 mg/dL (0-150) Cholesterol Level 145 mg/dL (0-200) LDL Cholesterol, Calculated 48 mg/dL (0-100) VLDL Cholesterol, Calculated 62 mg/dL (0-40) Non-HDL Cholesterol Calculated 110 mg/dL (0-129) HDL Cholesterol 35 mg/dL (40-60) Cholesterol/HDL Ratio 4.1 Test 06/29/17 07:58 06/29/17 11:46 06/29/17 17:43 06/29/17 20:59 Glucose (Fingerstick) 126 mg/dL (70-99) 121 mg/dL (70-99) 250 mg/dL (70-99) 180 mg/dL (70-99) Laboratory Tests Test 06/29/17 11:46 06/29/17 17:43 06/29/17 20:59 Glucose (Fingerstick) 121 mg/dL (70-99) 250 mg/dL (70-99) 180 mg/dL (70-99) Medications Active Scripts Medications Dose Route/Sig Max Daily Dose Days Date Category Probiotic (Lactobacillus Acidophilus) 1 Each Capsule 1 Each PO PRN DAILY PRN 06/28/17 Reported Biotin 1 Mg Capsule 1 Mg PO PRN DAILY PRN 06/28/17 Reported Ativan (Lorazepam) 0.5 Mg Tablet 0.5 Mg PO PRN BID PRN 06/28/17 Reported Hydrocodone-Apap 7.5-325 (Hydrocodone Bit/Acetaminophen) 1 Each Tablet 1 Tab PO PRN BID PRN 06/28/17 Reported Lexapro (Escitalopram Oxalate) 20 Mg Tablet 40 Mg PO HS 06/28/17 Reported Zocor (Simvastatin) 10 Mg Tablet 10 Mg PO HS 06/28/17 Reported Novolog (Insulin Aspart) 100 Unit/1 Ml Vial 10 Unit SQ HS 06/28/17 Reported Novolog (Insulin Aspart) 100 Unit/1 Ml Cartridge 15 Unit SQ TIDAC 06/28/17 Reported Meloxicam 15 Mg Tablet 15 Mg PO HS 06/28/17 Reported Lantus Solostar (Insulin Glargine,Hum.rec.anlog) 100 Unit/1 Ml Insuln.pen 85 Unit SQ HS 06/28/17 Reported Nexium Capsule (Esomeprazole Magnesium) 40 Mg Capsule. 1 Cap PO DAILY 06/28/17 Reported Lisinopril 40 Mg Tablet 1 Tab PO DAILY 06/28/17 Reported Metformin Hcl 500 Mg Tablet 500 Mg PO DAILY08 06/28/17 Reported Metformin Hcl 1,000 Mg Tablet 1,000 Mg PO [id number] 06/28/17 Reported Impression . full consult dictated aecopd clinical suspicion for PE is low will check venous Doppler to complete work up d/c in am 6 min walk possible sleep study as outpr PHOEBE CHI MD Jun 30, 2017 10:15
[2017-06-30] MEDS: HYDROcodone/APAP 7.5/325MG 1 TAB TABLET PO PRN (10:24)
[2017-06-30 11:00] VITALS: BP 140/66
[2017-06-30] MEDS ORDERED: ATROVENT HFA12.9 GM IH (11:02)
[2017-06-30] MEDS ORDERED: VENTOLIN HFA18 GM INH (11:02)
--- NOTE | 2017-06-30 11:30 | PDOC ---
G I PROGRESS NOTE Subjective No complaints this am GI-rust. Objective Cath was OK. Physical Exam Lungs clear. RRR Abdomen soft, not tender nor distended. Review of Relevant I have reviewed the following items charly (where applicable) has been applied. Labs Laboratory Tests Test 06/28/17 15:50 06/28/17 21:20 06/29/17 00:15 06/29/17 06:05 White Blood Count 8.2 x10^3/uL (4.0-11.0) 8.1 x10^3/uL (4.0-11.0) Red Blood Count 4.08 x10^6/uL (3.50-5.40) 3.77 x10^6/uL (3.50-5.40) Hemoglobin 10.1 g/dL (12.0-15.5) 9.3 g/dL (12.0-15.5) Hematocrit 31.3 % (36.0-47.0) 29.9 % (36.0-47.0) Mean Corpuscular Volume 77 fL (79-100) 79 fL (79-100) Mean Corpuscular Hemoglobin 25 pg (25-35) 25 pg (25-35) Mean Corpuscular Hemoglobin Concent 32 g/dL (31-37) 31 g/dL (31-37) Red Cell Distribution Width 16.1 % (11.5-14.5) 16.3 % (11.5-14.5) Platelet Count 346 x10^3/uL (140-400) 313 x10^3/uL (140-400) Neutrophils (%) (Auto) 39 % (31-73) 38 % (31-73) Lymphocytes (%) (Auto) 49 % (24-48) 50 % (24-48) Monocytes (%) (Auto) 7 % (0-9) 6 % (0-9) Eosinophils (%) (Auto) 4 % (0-3) 5 % (0-3) Basophils (%) (Auto) 2 % (0-3) 1 % (0-3) Neutrophils # (Auto) 3.2 x10^3uL (1.8-7.7) 3.1 x10^3uL (1.8-7.7) Lymphocytes # (Auto) 4.0 x10^3/uL (1.0-4.8) 4.1 x10^3/uL (1.0-4.8) Monocytes # (Auto) 0.5 x10^3/uL (0.0-1.1) 0.5 x10^3/uL (0.0-1.1) Eosinophils # (Auto) 0.4 x10^3/uL (0.0-0.7) 0.4 x10^3/uL (0.0-0.7) Basophils # (Auto) 0.1 x10^3/uL (0.0-0.2) 0.1 x10^3/uL (0.0-0.2) Prothrombin Time 11.8 SEC (11.7-14.0) Prothromb Time International Ratio 0.9 (0.8-1.1) D-Dimer (Melanie) 1.74 ug/mlFEU (0.00-0.50) Sodium Level 142 mmol/L (136-145) 139 mmol/L (136-145) Potassium Level 3.8 mmol/L (3.5-5.1) 4.2 mmol/L (3.5-5.1) Chloride Level 106 mmol/L (98-107) 106 mmol/L (98-107) Carbon Dioxide Level 24 mmol/L (21-32) 25 mmol/L (21-32) Anion Gap 12 (6-14) 8 (6-14) Blood Urea Nitrogen 11 mg/dL (7-20) 13 mg/dL (7-20) Creatinine 1.0 mg/dL (0.6-1.0) 1.0 mg/dL (0.6-1.0) Estimated GFR (Cockcroft-Gault) 70.2 70.2 Glucose Level 85 mg/dL (70-99) 152 mg/dL (70-99) Calcium Level 9.1 mg/dL (8.5-10.1) 8.2 mg/dL (8.5-10.1) Magnesium Level 1.7 mg/dL (1.8-2.4) 2.2 mg/dL (1.8-2.4) Total Bilirubin 0.5 mg/dL (0.2-1.0) Direct Bilirubin 0.1 mg/dL (0.0-0.2) Aspartate Amino Transf (AST/SGOT) 18 U/L (15-37) Alanine Aminotransferase (ALT/SGPT) 30 U/L (14-59) Alkaline Phosphatase 87 U/L (46-116) Creatine Kinase 264 U/L (26-192) Creatine Kinase MB (Mass) 3.1 ng/mL (0.0-3.6) Creatine Kinase MB Relative Index 1.2 % (0-4) Troponin I Quantitative 0.022 ng/mL (0.000-0.055) 0.020 ng/mL (0.000-0.055) 0.028 ng/mL (0.000-0.055) EK-Swt-E-Type Natriuretic Peptide 817 pg/mL (0-124) Total Protein 7.2 g/dL (6.4-8.2) Albumin 3.1 g/dL (3.4-5.0) Lipase 137 U/L (73-393) Thyroid Stimulating Hormone (TSH) 2.062 uIU/mL (0.358-3.74) Glucose (Fingerstick) 153 mg/dL (70-99) Hemoglobin A1c 7.6 % (4.8-5.6) Iron Level 29 ug/dL (50-170) Total Iron Binding Capacity 315 ug/dL (250-450) Iron Saturation 9 % (15-34) Triglycerides Level 309 mg/dL (0-150) Cholesterol Level 145 mg/dL (0-200) LDL Cholesterol, Calculated 48 mg/dL (0-100) VLDL Cholesterol, Calculated 62 mg/dL (0-40) Non-HDL Cholesterol Calculated 110 mg/dL (0-129) HDL Cholesterol 35 mg/dL (40-60) Cholesterol/HDL Ratio 4.1 Test 06/29/17 07:58 06/29/17 11:46 06/29/17 17:43 06/29/17 20:59 Glucose (Fingerstick) 126 mg/dL (70-99) 121 mg/dL (70-99) 250 mg/dL (70-99) 180 mg/dL (70-99) Laboratory Tests Test 06/29/17 11:46 06/29/17 17:43 06/29/17 20:59 Glucose (Fingerstick) 121 mg/dL (70-99) 250 mg/dL (70-99) 180 mg/dL (70-99) Medications Current Medications Morphine Sulfate 2 mg PRN Q15MIN PRN IV/SQ PAIN GREATER THAN 3/10 Last administered on 06/28/17 17:05; Start 06/28/17 at 15:45; Stop 06/29/17 at 15:44 ; Status DC Aspirin ([place]by Aspirin) 325 mg 1X ONCE PO Last administered on 06/28/17 17:46 ; Start 06/28/17 at 17:45; Stop 06/28/17 at 17:46; Status DC Iohexol (Omnipaque 350 Mg/ml) 75 ml 1X ONCE IV Last administered on 06/28/17 17:45; Start 06/28/17 at 17:45; Stop 06/28/17 at 17:46; Status DC Info (Do NOT chart on this entry -- for MONITORING) 1 each PRN DAILY PRN MC SEE COMMENTS; Start 06/28/17 at 18:00; Stop 06/30/17 at 17:59 Ondansetron HCl (Zofran) 4 mg PRN Q8HRS PRN IV NAUSEA/VOMITING; Start 06/28/17 at 18:15; Stop 06/29/17 at 18:14; Status DC Morphine Sulfate 2 mg PRN Q2HR PRN IV PAIN; Start 06/28/17 at 18:15; Stop at 18:14; Status DC Iohexol (Omnipaque 350 Mg/ml) 75 ml 1X ONCE IV Last administered on 06/28/17 18:47; Start 06/28/17 at 18:30; Stop 06/28/17 at 18:31; Status DC Pneumococcal Polyvalent Vaccine (Do NOT chart on this placeholder) 0.1 each 1X ONCE MC ; Start 06/29/17 at 09:00; Stop 06/29/17 at 09:01; Status UNV Pneumococcal Polyvalent Vaccine (Pneumovax 23) 0.5 ml ONCE ONCE VAX IM Last administered on 06/29/17 09:51; Start 06/29/17 at 09:00; Stop 06/29/17 at 09:01; Status DC Acetaminophen/ Hydrocodone Bitart (Lortab 7.5/325) 1 tab PRN BID PRN PO PAIN Last administered on 06/30/17 10:24; Start 06/28/17 at 21:30 Insulin Aspart (NovoLOG) 10 units HS SQ Last administered on 06/28/17 22:39; Start 06/28/17 at 22:00 Lisinopril (Prinivil) 40 mg DAILY PO Last administered on 06/30/17 08:31; Start 06/29/17 at 09:00 Lorazepam (Ativan) 0.5 mg PRN BID PRN PO ANXIETY; Start 06/28/17 at 21:30 Simvastatin (Zocor) 10 mg HS PO Last administered on 06/29/17 21:36; Start 06/29 at 21:00 Non-Formulary Medication 1 mg PRN DAILY PRN PO GI SYMPTOMS; Start 06/28/17 at 21:30; Status UNV Escitalopram Oxalate (Lexapro) 40 mg HS PO Last administered on 06/29/17 21:36 ; Start 06/28/17 at 22:00 Pantoprazole Sodium (Protonix) 40 mg DAILYAC PO Last administered on 06/30/17 08:31; Start 06/29/17 at 07:30 Insulin Aspart (NovoLOG) 15 units TIDAC SQ Last administered on 06/30/17 08:34 ; Start 06/29/17 at 07:30 Insulin Detemir (Levemir) 45 units QHS SQ Last administered on 06/29/17 21:40; Start 06/28/17 at 22:00 Enoxaparin Sodium (Lovenox Per Pharmacy Prophylaxis Dosing) 1 each PRN DAILY PRN MC SEE COMMENTS; Start 06/28/17 at 22:00 Magnesium Sulfate/ Dextrose 50 ml @ 25 mls/hr 1X ONCE IV Last administered on 06/28/17 22:17; Start 06/28/17 at 21:45; Stop 06/28/17 at 23:44; Status DC Chlorphenir/ Hydrocodone Polistirex (Tussionex) 5 ml PRN Q12HR PRN PO COUGH; Start 06/28/17 at 21:30 Albuterol/ Ipratropium (Duoneb) 3 ml RTQID NEB Last administered on 06/30/17 07 :55; Start 06/29/17 at 08:00 Albuterol/ Ipratropium (Duoneb) 3 ml 1X ONCE NEB Last administered on 22:07; Start 06/28/17 at 21:45; Stop 06/28/17 at 21:46; Status DC Enoxaparin Sodium (Lovenox 40mg Syringe) 40 mg Q24H SQ Last administered on 22:19; Start 06/28/17 at 22:00; Stop 06/29/17 at 14:04; Status DC Aspirin (Ecotrin) 81 mg DAILYWBKFT PO Last administered on 06/30/17 08:31; Start 06/29/17 at 11:00 Sodium Chloride 1,000 ml @ 75 mls/hr 1X ONCE IV Last administered on 11:10; Start 06/29/17 at 10:45; Stop 06/30/17 at 00:04; Status DC Heparin Sodium/ Sodium Chloride 1,000 ml @ As Directed STK-MED ONCE .ROUTE ; Start 06/29/17 at 12:17; Stop 06/29/17 at 12:18; Status DC Lidocaine HCl 20 ml STK-MED ONCE .ROUTE ; Start 06/29/17 at 12:17; Stop 06/29/17 at 12:18; Status DC Iodixanol (Visipaque 320) 100 ml STK-MED ONCE .ROUTE ; Start 06/29/17 at 12:18; Stop 06/29/17 at 12:19; Status DC Nitroglycerin (Nitroglycerin) 200 mcg STK-MED ONCE .ROUTE ; Start 06/29/17 at 12: 42; Stop 06/29/17 at 12:43; Status DC Verapamil HCl (Verapamil) 5 mg STK-MED ONCE .ROUTE ; Start 06/29/17 at 12:42; Stop 06/29/17 at 12:43; Status DC Heparin Sodium (Porcine) (Heparin Sodium) 10,000 unit STK-MED ONCE .ROUTE ; Start 06/29/17 at 12:42; Stop 06/29/17 at 12:43; Status DC Fentanyl Citrate (Fentanyl 2ml Vial) 100 mcg STK-MED ONCE .ROUTE ; Start at 12:42; Stop 06/29/17 at 12:43; Status DC Midazolam HCl (Versed) 5 mg STK-MED ONCE .ROUTE ; Start 06/29/17 at 12:42; Stop 06/29/17 at 12:43; Status DC Nitroglycerin (Nitroglycerin) 200 mcg 1X ONCE IART Last administered on 13:14; Start 06/29/17 at 13:00; Stop 06/29/17 at 13:07; Status DC Verapamil HCl (Verapamil) 2.5 mg 1X ONCE IART Last administered on 06/29/17 13 :00; Start 06/29/17 at 13:00; Stop 06/29/17 at 13:07; Status DC Heparin Sodium (Porcine) (Heparin Sodium) 2,500 unit 1X ONCE IART Last administered on 06/29/17 13:00; Start 06/29/17 at 13:00; Stop 06/29/17 at 13:07; Status DC Heparin Sodium/ Sodium Chloride 1,000 unit 1X ONCE IART Last administered on 13:13; Start 06/29/17 at 13:00; Stop 06/29/17 at 13:07; Status DC Midazolam HCl (Versed) 5 mg 1X ONCE IV Last administered on 06/29/17 13:12; Start 06/29/17 at 13:00; Stop 06/29/17 at 13:07; Status DC Fentanyl Citrate (Fentanyl 2ml Vial) 100 mcg 1X ONCE IV Last administered on 13:13; Start 06/29/17 at 13:00; Stop 06/29/17 at 13:07; Status DC Iodixanol (Visipaque 320) 100 ml 1X ONCE IART Last administered on 06/29/17 13 :14; Start 06/29/17 at 13:00; Stop 06/29/17 at 13:07; Status DC Lidocaine HCl 20 ml 1X ONCE IJ Last administered on 06/29/17 13:14; Start 06/29 at 13:00; Stop 06/29/17 at 13:07; Status DC Info (Do NOT chart on this entry -- for MONITORING) 1 each PRN DAILY PRN MC SEE COMMENTS; Start 06/29/17 at 13:15; Stop 07/01/17 at 13:14 Enoxaparin Sodium (Lovenox 40mg Syringe) 40 mg Q12HR SQ ; Start 06/29/17 at 21:00 Prednisone (Prednisone) 30 mg DAILY PO Last administered on 06/30/17 08:31; Start 06/30/17 at 09:00 Albuterol/ Ipratropium (Duoneb) 3 ml RTQID NEB ; Start 06/30/17 at 12:00 Active Scripts Active Reported Probiotic (Lactobacillus Acidophilus) 1 Each Capsule 1 Each PO PRN DAILY PRN Biotin 1 Mg Capsule 1 Mg PO PRN DAILY PRN Ativan (Lorazepam) 0.5 Mg Tablet 0.5 Mg PO PRN BID PRN Hydrocodone-Apap 7.5-325 (Hydrocodone Bit/Acetaminophen) 1 Each Tablet 1 Tab PO PRN BID PRN Lexapro (Escitalopram Oxalate) 20 Mg Tablet 40 Mg PO HS Zocor (Simvastatin) 10 Mg Tablet 10 Mg PO HS Novolog (Insulin Aspart) 100 Unit/1 Ml Vial 10 Unit SQ HS Novolog (Insulin Aspart) 100 Unit/1 Ml Cartridge 15 Unit SQ TIDAC Meloxicam 15 Mg Tablet 15 Mg PO HS Lantus Solostar (Insulin Glargine,Hum.rec.anlog) 100 Unit/1 Ml Insuln.pen 85 Unit SQ HS Nexium Capsule (Esomeprazole Magnesium) 40 Mg Capsule.dr 1 Cap PO DAILY Lisinopril 40 Mg Tablet 1 Tab PO DAILY Metformin Hcl 500 Mg Tablet 500 Mg PO DAILY08 Metformin Hcl 1,000 Mg Tablet 1,000 Mg PO DAILYWBKFT Vitals/I & O Vital Sign - Last 24 Hours 06/29/17 06/29/17 06/29/17 06/29/17 12:06 13:00 13:13 14:15 Pulse 68 Resp 15 Pulse Ox 99 95 O2 Delivery Room Air Room Air Room Air 06/29/17 06/29/17 06/29/17 06/29/17 14:15 15:00 15:00 16:13 Temp 97.5 97.5 Pulse 86 84 86 Resp 18 B/P (MAP) 135/66 (89) 141/73 (95) 141/73 (95) Pulse Ox 98 96 100 O2 Delivery Room Air 06/29/17 06/29/17 06/29/17 06/29/17 19:15 19:42 20:00 21:37 Temp 97.9 97.9 Pulse 89 Resp 20 B/P (MAP) 144/67 (92) Pulse Ox 98 99 99 O2 Delivery Room Air Room Air Room Air Room Air 8/106/29/17 06/30/17 06/30/17 22:30 22:37 02:55 07:15 Temp 98.1 98.2 98.0 98.1 98.2 98.0 Pulse 86 88 87 Resp 18 20 20 B/P (MAP) 129/65 (86) 136/66 (89) 124/58 (80) Pulse Ox 100 99 98 96 O2 Delivery Room Air Room Air Room Air Room Air 06/30/17 06/30/17 06/30/17 06/30/17 07:58 08:31 10:24 11:00 Temp 97.7 97.7 Pulse 87 89 Resp 16 20 B/P (MAP) 124/58 140/66 (90) Pulse Ox 96 100 O2 Delivery Room Air Room Air Room Air Intake and Output 06/29/17 06/29/17 06/30/17 15:00 23:00 07:00 Intake Total 1960 ml Output Total 2750 ml 200 ml Balance -2750 ml 1760 ml Assessment NCCP, likely reflux. ZITA, query small bowel issue as fairly recent non-diagnostic scopes historically. Plan of Care: Continue current Tx, Mgmt Plan of Care Note Suggested BID PPI at home if chest pain frequently; can also use antacids prn. Suggested po iron at home. OK with me to dismiss; technology to investigate ZITA further not available here. Can f/u with me if she desires; could do outpatient SBCE. KIESHA FRANCO MD Jun 30, 2017 11:30
[2017-06-30] MEDS ORDERED: IPRATRPIUM/ALBUTEROL 0.5/2.5MG 3 ML NEBU. NEB SCH (12:00)
[2017-06-30] MEDS ORDERED: FERR-26 PO (13:20)
[2017-06-30] MEDS ORDERED: FLUT1DIS IH (13:34)
[2017-06-30] MEDS ORDERED: ESOM40CA PO (13:35)
--- NOTE | 2017-06-30 14:43 | PDOC3 ---
Discharge Summary Visit Information Date of Admission: Jun 28, 2017 Date of Discharge: Jun 30, 2017 Admitting Diagnosis: chest pain Final Diagnosis Angina, chest pain with dyspnea and orthopnea, left bundle branch block on EKG GERD, seems stable cont PPI, EGD was a couple years ago, morbid obesity, BMI 41 Dm2, large doses on insulin, excellent control while NPO this AM depression, on SSRI anemia, iron deficient, normal colonoscopy 2 years ago early COPD Brief Hospital Course Allergies Allergies Coded Allergies Type Severity Reaction Last Updated Verified Penicillins Allergy Unknown SKIN RASH 06/29/17 Yes Sulfa (Sulfonamide Antibiotics) Allergy Unknown SKIN RASH 06/28/17 Yes amoxicillin Allergy Unknown SKIN RASH 06/28/17 Yes cephalexin Allergy Unknown SKIN RASH 06/28/17 Yes Vital Signs Vital Signs Date Time Temp Pulse Resp B/P (MAP) Pulse Ox O2 Delivery O2 Flow Rate FiO2 06/30/17 12:10 Room Air 06/30/17 11:24 100 06/30/17 11:00 97.7 89 20 140/66 (90) 97.7 Lab Results Laboratory Tests Test 06/28/17 15:50 06/28/17 21:20 06/29/17 00:15 06/29/17 06:05 White Blood Count 8.2 x10^3/uL (4.0-11.0) 8.1 x10^3/uL (4.0-11.0) Red Blood Count 4.08 x10^6/uL (3.50-5.40) 3.77 x10^6/uL (3.50-5.40) Hemoglobin 10.1 g/dL (12.0-15.5) 9.3 g/dL (12.0-15.5) Hematocrit 31.3 % (36.0-47.0) 29.9 % (36.0-47.0) Mean Corpuscular Volume 77 fL (79-100) 79 fL (79-100) Mean Corpuscular Hemoglobin 25 pg (25-35) 25 pg (25-35) Mean Corpuscular Hemoglobin Concent 32 g/dL (31-37) 31 g/dL (31-37) Red Cell Distribution Width 16.1 % (11.5-14.5) 16.3 % (11.5-14.5) Platelet Count 346 x10^3/uL (140-400) 313 x10^3/uL (140-400) Neutrophils (%) (Auto) 39 % (31-73) 38 % (31-73) Lymphocytes (%) (Auto) 49 % (24-48) 50 % (24-48) Monocytes (%) (Auto) 7 % (0-9) 6 % (0-9) Eosinophils (%) (Auto) 4 % (0-3) 5 % (0-3) Basophils (%) (Auto) 2 % (0-3) 1 % (0-3) Neutrophils # (Auto) 3.2 x10^3uL (1.8-7.7) 3.1 x10^3uL (1.8-7.7) Lymphocytes # (Auto) 4.0 x10^3/uL (1.0-4.8) 4.1 x10^3/uL (1.0-4.8) Monocytes # (Auto) 0.5 x10^3/uL (0.0-1.1) 0.5 x10^3/uL (0.0-1.1) Eosinophils # (Auto) 0.4 x10^3/uL (0.0-0.7) 0.4 x10^3/uL (0.0-0.7) Basophils # (Auto) 0.1 x10^3/uL (0.0-0.2) 0.1 x10^3/uL (0.0-0.2) Prothrombin Time 11.8 SEC (11.7-14.0) Prothromb Time International Ratio 0.9 (0.8-1.1) D-Dimer (Melanie) 1.74 ug/mlFEU (0.00-0.50) Sodium Level 142 mmol/L (136-145) 139 mmol/L (136-145) Potassium Level 3.8 mmol/L (3.5-5.1) 4.2 mmol/L (3.5-5.1) Chloride Level 106 mmol/L (98-107) 106 mmol/L (98-107) Carbon Dioxide Level 24 mmol/L (21-32) 25 mmol/L (21-32) Anion Gap 12 (6-14) 8 (6-14) Blood Urea Nitrogen 11 mg/dL (7-20) 13 mg/dL (7-20) Creatinine 1.0 mg/dL (0.6-1.0) 1.0 mg/dL (0.6-1.0) Estimated GFR (Cockcroft-Gault) 70.2 70.2 Glucose Level 85 mg/dL (70-99) 152 mg/dL (70-99) Calcium Level 9.1 mg/dL (8.5-10.1) 8.2 mg/dL (8.5-10.1) Magnesium Level 1.7 mg/dL (1.8-2.4) 2.2 mg/dL (1.8-2.4) Total Bilirubin 0.5 mg/dL (0.2-1.0) Direct Bilirubin 0.1 mg/dL (0.0-0.2) Aspartate Amino Transf (AST/SGOT) 18 U/L (15-37) Alanine Aminotransferase (ALT/SGPT) 30 U/L (14-59) Alkaline Phosphatase 87 U/L (46-116) Creatine Kinase 264 U/L (26-192) Creatine Kinase MB (Mass) 3.1 ng/mL (0.0-3.6) Creatine Kinase MB Relative Index 1.2 % (0-4) Troponin I Quantitative 0.022 ng/mL (0.000-0.055) 0.020 ng/mL (0.000-0.055) 0.028 ng/mL (0.000-0.055) VP-Qjz-R-Type Natriuretic Peptide 817 pg/mL (0-124) Total Protein 7.2 g/dL (6.4-8.2) Albumin 3.1 g/dL (3.4-5.0) Lipase 137 U/L (73-393) Thyroid Stimulating Hormone (TSH) 2.062 uIU/mL (0.358-3.74) Glucose (Fingerstick) 153 mg/dL (70-99) Hemoglobin A1c 7.6 % (4.8-5.6) Iron Level 29 ug/dL (50-170) Total Iron Binding Capacity 315 ug/dL (250-450) Iron Saturation 9 % (15-34) Triglycerides Level 309 mg/dL (0-150) Cholesterol Level 145 mg/dL (0-200) LDL Cholesterol, Calculated 48 mg/dL (0-100) VLDL Cholesterol, Calculated 62 mg/dL (0-40) Non-HDL Cholesterol Calculated 110 mg/dL (0-129) HDL Cholesterol 35 mg/dL (40-60) Cholesterol/HDL Ratio 4.1 Test 06/29/17 07:58 06/29/17 11:46 06/29/17 17:43 06/29/17 20:59 Glucose (Fingerstick) 126 mg/dL (70-99) 121 mg/dL (70-99) 250 mg/dL (70-99) 180 mg/dL (70-99) Laboratory Tests Test 06/29/17 17:43 06/29/17 20:59 Glucose (Fingerstick) 250 mg/dL (70-99) 180 mg/dL (70-99) Brief Hospital Course Ms. Bell is a 52 old AA female, admit with chest pain, EKG showed lower LBB block pain improved, marked weakness and exercise intolerance, some back pain,. Pulm consult, asthma, COPD probable CT angio Impression: 1. Accurate evaluation for pulmonary embolic disease is limited due to poor contrast opacification of the pulmonary arteries. There is a questionable filling defect of subsegmental branch of the posterior basal left lower lobe although poorly characterized. Attempt at repeat exam or ventilation/perfusion exam could be beneficial if clinically needed. 2. There are small dependent pleural effusions bilaterally. 3. Normal left kidney is not seen on this exam. 4. There is possible small incidental right lower lobe pulmonary nodule up to 0.6 cm. 6-12 month follow-up is recommended as per Fleischner guidelines. CARDIAC CATh 06/29 Conclusion, EF 55% 1. No significant obstructive coronary disease. 2. Normal LV function. ECHO The Ejection Fraction is low normal. EF 50-55%. Septal motion consistent with conduction abnormality. Otherwise, wall motion not able to be ascertained due to poor image quality. Technically difficult study. Discharge Information Condition at Discharge: Improved Follow Up: Weeks Scheduled Escitalopram Oxalate (Lexapro), 40 MG PO HS, (Reported) Esomeprazole Magnesium (Nexium Capsule), 1 CAP PO BID Ferrous Sulfate (Ferrous Sulfate), 1 TAB PO BID Fluticasone/Salmeterol (Advair 100-50 Diskus), 1 PUFF IH BID Insulin Aspart (Novolog), 15 UNIT SQ TIDAC, (Reported) Insulin Aspart (Novolog), 10 UNIT SQ HS, (Reported) Insulin Glargine,Hum.rec.anlog (Lantus Solostar), 85 UNIT SQ HS, (Reported) Ipratropium [place] (Atrovent Hfa), 1 PUFF IH QID Lisinopril (Lisinopril), 1 TAB PO DAILY, (Reported) Meloxicam (Meloxicam), 15 MG PO HS, (Reported) Metformin Hcl (Metformin Hcl), 1,000 MG PO DAILYWBKFT, (Reported) Metformin Hcl (Metformin Hcl), 500 MG PO DAILY08, (Reported) Simvastatin (Zocor), 10 MG PO HS, (Reported) Scheduled PRN Albuterol Sulfate (Ventolin Hfa Inhaler), 2 PUFF INH Q4HRS PRN for dyspnea Biotin (Biotin), 1 MG PO PRN DAILY PRN for GI SYMPTOMS, (Reported) Hydrocodone Bit/Acetaminophen (Hydrocodone-Apap 7.5-325 ), 1 TAB PO PRN BID PRN for PAIN, (Reported) Lactobacillus Acidophilus (Probiotic), 1 EACH PO PRN DAILY PRN for GI SYMPTOMS, (Reported) Lorazepam (Ativan), 0.5 MG PO PRN BID PRN for ANXIETY, (Reported) Patient Instructions Patient Instructions > 30 min, 2 visits f/u Dr. Nayla pedersen meds, iron, advair, ipratropium, albuterol, and Increase nexium to BID FAISAL MALHOTRA MD Jun 30, 2017 14:43
--- NOTE | 2017-06-30 15:26 | PDOC ---
PULMONARY PROGRESS NOTES Subjective pt not more soa Vitals Vital Signs Date Time Temp Pulse Resp B/P (MAP) Pulse Ox O2 Delivery O2 Flow Rate FiO2 06/30/17 12:10 Room Air 06/30/17 11:24 100 06/30/17 11:00 97.7 89 20 140/66 (90) 97.7 ROS: No Nausea, No Chest Pain, No Abdominal Pain, No Increase Cough General: Alert Lungs: Clear, Crackles Cardiovascular: S1, S2 Abdomen: Soft Neuro Exam: Alert Extremities: No Edema Skin: Warm Labs Laboratory Tests Test 06/28/17 15:50 06/28/17 21:20 06/29/17 00:15 06/29/17 06:05 White Blood Count 8.2 x10^3/uL (4.0-11.0) 8.1 x10^3/uL (4.0-11.0) Red Blood Count 4.08 x10^6/uL (3.50-5.40) 3.77 x10^6/uL (3.50-5.40) Hemoglobin 10.1 g/dL (12.0-15.5) 9.3 g/dL (12.0-15.5) Hematocrit 31.3 % (36.0-47.0) 29.9 % (36.0-47.0) Mean Corpuscular Volume 77 fL (79-100) 79 fL (79-100) Mean Corpuscular Hemoglobin 25 pg (25-35) 25 pg (25-35) Mean Corpuscular Hemoglobin Concent 32 g/dL (31-37) 31 g/dL (31-37) Red Cell Distribution Width 16.1 % (11.5-14.5) 16.3 % (11.5-14.5) Platelet Count 346 x10^3/uL (140-400) 313 x10^3/uL (140-400) Neutrophils (%) (Auto) 39 % (31-73) 38 % (31-73) Lymphocytes (%) (Auto) 49 % (24-48) 50 % (24-48) Monocytes (%) (Auto) 7 % (0-9) 6 % (0-9) Eosinophils (%) (Auto) 4 % (0-3) 5 % (0-3) Basophils (%) (Auto) 2 % (0-3) 1 % (0-3) Neutrophils # (Auto) 3.2 x10^3uL (1.8-7.7) 3.1 x10^3uL (1.8-7.7) Lymphocytes # (Auto) 4.0 x10^3/uL (1.0-4.8) 4.1 x10^3/uL (1.0-4.8) Monocytes # (Auto) 0.5 x10^3/uL (0.0-1.1) 0.5 x10^3/uL (0.0-1.1) Eosinophils # (Auto) 0.4 x10^3/uL (0.0-0.7) 0.4 x10^3/uL (0.0-0.7) Basophils # (Auto) 0.1 x10^3/uL (0.0-0.2) 0.1 x10^3/uL (0.0-0.2) Prothrombin Time 11.8 SEC (11.7-14.0) Prothromb Time International Ratio 0.9 (0.8-1.1) D-Dimer (Melanie) 1.74 ug/mlFEU (0.00-0.50) Sodium Level 142 mmol/L (136-145) 139 mmol/L (136-145) Potassium Level 3.8 mmol/L (3.5-5.1) 4.2 mmol/L (3.5-5.1) Chloride Level 106 mmol/L (98-107) 106 mmol/L (98-107) Carbon Dioxide Level 24 mmol/L (21-32) 25 mmol/L (21-32) Anion Gap 12 (6-14) 8 (6-14) Blood Urea Nitrogen 11 mg/dL (7-20) 13 mg/dL (7-20) Creatinine 1.0 mg/dL (0.6-1.0) 1.0 mg/dL (0.6-1.0) Estimated GFR (Cockcroft-Gault) 70.2 70.2 Glucose Level 85 mg/dL (70-99) 152 mg/dL (70-99) Calcium Level 9.1 mg/dL (8.5-10.1) 8.2 mg/dL (8.5-10.1) Magnesium Level 1.7 mg/dL (1.8-2.4) 2.2 mg/dL (1.8-2.4) Total Bilirubin 0.5 mg/dL (0.2-1.0) Direct Bilirubin 0.1 mg/dL (0.0-0.2) Aspartate Amino Transf (AST/SGOT) 18 U/L (15-37) Alanine Aminotransferase (ALT/SGPT) 30 U/L (14-59) Alkaline Phosphatase 87 U/L (46-116) Creatine Kinase 264 U/L (26-192) Creatine Kinase MB (Mass) 3.1 ng/mL (0.0-3.6) Creatine Kinase MB Relative Index 1.2 % (0-4) Troponin I Quantitative 0.022 ng/mL (0.000-0.055) 0.020 ng/mL (0.000-0.055) 0.028 ng/mL (0.000-0.055) HA-Bbi-M-Type Natriuretic Peptide 817 pg/mL (0-124) Total Protein 7.2 g/dL (6.4-8.2) Albumin 3.1 g/dL (3.4-5.0) Lipase 137 U/L (73-393) Thyroid Stimulating Hormone (TSH) 2.062 uIU/mL (0.358-3.74) Glucose (Fingerstick) 153 mg/dL (70-99) Hemoglobin A1c 7.6 % (4.8-5.6) Iron Level 29 ug/dL (50-170) Total Iron Binding Capacity 315 ug/dL (250-450) Iron Saturation 9 % (15-34) Triglycerides Level 309 mg/dL (0-150) Cholesterol Level 145 mg/dL (0-200) LDL Cholesterol, Calculated 48 mg/dL (0-100) VLDL Cholesterol, Calculated 62 mg/dL (0-40) Non-HDL Cholesterol Calculated 110 mg/dL (0-129) HDL Cholesterol 35 mg/dL (40-60) Cholesterol/HDL Ratio 4.1 Test 06/29/17 07:58 06/29/17 11:46 06/29/17 17:43 06/29/17 20:59 Glucose (Fingerstick) 126 mg/dL (70-99) 121 mg/dL (70-99) 250 mg/dL (70-99) 180 mg/dL (70-99) Laboratory Tests Test 06/29/17 17:43 06/29/17 20:59 Glucose (Fingerstick) 250 mg/dL (70-99) 180 mg/dL (70-99) Medications Active Scripts Medications Dose Route/Sig Max Daily Dose Days Date Category Probiotic (Lactobacillus Acidophilus) 1 Each Capsule 1 Each PO PRN DAILY PRN 06/28/17 Reported Biotin 1 Mg Capsule 1 Mg PO PRN DAILY PRN 06/28/17 Reported Ativan (Lorazepam) 0.5 Mg Tablet 0.5 Mg PO PRN BID PRN 06/28/17 Reported Hydrocodone-Apap 7.5-325 (Hydrocodone Bit/Acetaminophen) 1 Each Tablet 1 Tab PO PRN BID PRN 06/28/17 Reported Lexapro (Escitalopram Oxalate) 20 Mg Tablet 40 Mg PO HS 06/28/17 Reported Zocor (Simvastatin) 10 Mg Tablet 10 Mg PO HS 06/28/17 Reported Novolog (Insulin Aspart) 100 Unit/1 Ml Vial 10 Unit SQ HS 06/28/17 Reported Novolog (Insulin Aspart) 100 Unit/1 Ml Cartridge 15 Unit SQ TIDAC 06/28/17 Reported Meloxicam 15 Mg Tablet 15 Mg PO HS 06/28/17 Reported Lantus Solostar (Insulin Glargine,Hum.rec.anlog) 100 Unit/1 Ml Insuln.pen 85 Unit SQ HS 06/28/17 Reported Nexium Capsule (Esomeprazole Magnesium) 40 Mg Capsule.dr 1 Cap PO DAILY 06/28/17 Reported Lisinopril 40 Mg Tablet 1 Tab PO DAILY 06/28/17 Reported Metformin Hcl 500 Mg Tablet 500 Mg PO DAILY08 06/28/17 Reported Metformin Hcl 1,000 Mg Tablet 1,000 Mg PO [id number] 06/28/17 Reported Impression . 1. Progressive dyspnea secondary to exacerbation of chronic obstructive pulmonary disease. 2. Acute nonspecific bronchitis. 3. Bilateral pleural effusion, suspect mild diastolic heart failure. 4. Clinical suspicion for pulmonary embolism is low. We will obtain venous Dopplers of lower extremities. 5. Pulmonary nodule, repeat CT in 6 months. 6. Obesity. 7. Tobacco dependence. Plan . d/c ok MDI FOLLOW UP IN [address] CHEST 1. Recommend continue diuresis. 2. Discharged home on the combination of long-acting bronchodilator and steroid such as Symbicort or Advair. 3. Treat acute bronchitis. 4. Venous Dopplers of lower extremities. 5. Flonase and Zyrtec [id number] for allergies and allergic rhinitis. PHOEBE CHI MD Jun 30, 2017 15:26
== END 2017-06-30 16:20 | disposition home or self-care (01) | DRG 287 ==
LOC: ER 15:11 → 2 NORTH 17:40
PROVIDERS: ADMIT Internal Medicine; ATTEND Internal Medicine
PROC: 4A023N7 Measurement of Cardiac Sampling and Pressure, Left Heart, Percutaneous Approach (ICD-10-PCS; principal; 2017-06-29)
PROC: B2111ZZ Fluoroscopy of Multiple Coronary Arteries using Low Osmolar Contrast (ICD-10-PCS; 2017-06-29)
PROC: B2151ZZ Fluoroscopy of Left Heart using Low Osmolar Contrast (ICD-10-PCS; 2017-06-29)
DX: I20.0 Unstable angina (principal); Z68.41 Body mass index [BMI] 40.0-44.9, adult; J44.1 Chronic obstructive pulmonary disease with (acute) exacerbation; J44.0 Chronic obstructive pulmonary disease with (acute) lower respiratory infection; D50.9 Iron deficiency anemia, unspecified; E11.9 Type 2 diabetes mellitus without complications; E66.01 Morbid (severe) obesity due to excess calories; F32.9 Major depressive disorder, single episode, unspecified; K21.9 Gastro-esophageal reflux disease without esophagitis; Z82.0 Family history of epilepsy and other diseases of the nervous system; Z82.49 Family history of ischemic heart disease and other diseases of the circulatory system; Z83.3 Family history of diabetes mellitus; Z87.891 Personal history of nicotine dependence; Z88.1 Allergy status to other antibiotic agents; Z88.0 Allergy status to penicillin; Z88.2 Allergy status to sulfonamides; R06.01 Orthopnea; E78.5 Hyperlipidemia, unspecified; F17.200 Nicotine dependence, unspecified, uncomplicated; G47.33 Obstructive sleep apnea (adult) (pediatric); I11.0 Hypertensive heart disease with heart failure; I44.7 Left bundle-branch block, unspecified; I50.9 Heart failure, unspecified; Z79.1 Long term (current) use of non-steroidal anti-inflammatories (NSAID); F41.9 Anxiety disorder, unspecified; M19.90 Unspecified osteoarthritis, unspecified site; M48.02 Spinal stenosis, cervical region; Z98.51 Tubal ligation status; R91.1 Solitary pulmonary nodule; J20.9 Acute bronchitis, unspecified
CPT/HCPCS: 36415; 71010; 71275; 80048; 80061; 80076; 82553; 82962; 83036; 83540; 83550; 83690; 83735; 83880; 84443; 84484; 85027; 85379; 85610; 90732; 93005; 93306; 93458; 93970; 94250; 94620; 94640; 94760; 96372; 99152; 99153; C1892; J1644; J1650; J1815; J2001; J2250; J2270; J3010; J3490; J7030; J7060; J7512; J7620; Q9967; 99285-25

== ENCOUNTER → 2017-08-16 | Outpatient (CLI) | payer BC ==
[~2017-08-16] MED LIST: ATROVENT HFA12.9 GM IH; BIOT1CAP3 PO; ESOM40CA PO; FERR-26 PO; FLUT1DIS IH; HYDR-2762 PO; INSU100C4 SQ; INSU100I13 SQ; INSU100V31 SQ; LACT1CAP6 PO; LEXAPRO20 MG PO; LISI40TA PO; LORA0.5T96 PO; MELO15TA23 PO; METF-620 PO; METF500T4 PO; SIMV10TA PO; VENTOLIN HFA18 GM INH
--- NOTE | 2017-08-16 11:30 | RAD ---
Indication: Follow-up pulmonary nodule. Noncontrast imaging through the chest was performed and is compared to a study 06/28/2017. Imaging through the upper abdomen is unremarkable. There is a very small hiatus hernia. There is no significant hilar or mediastinal adenopathy. Small pleural effusions seen on the previous examination have resolved. There are scattered groundglass opacities in the lungs. These are nonspecific. There is some minimal pleural-parenchymal scarring. A dominant soft tissue mass in either lung is not seen. There is an unchanged 4 to 5 mm nodule in the right lower lobe, image 218 series 3. Continued follow-up, over a 2 year time frame, is advised IMPRESSION: Scattered groundglass opacities are noted in the lungs. This is nonspecific. No dominant soft tissue mass seen in either lung. Unchanged 4 to 5 mm nodule in the right lower lobe. PQRS Compliance Statement: One or more of the following individualized dose reduction techniques were utilized for this examination: 1. Automated exposure control 2. Adjustment of the mA and/or kV according to patient size 3. Use of iterative reconstruction technique
== END | disposition home or self-care (01) ==
LOC: CT 08:59
PROVIDERS: ATTEND Internal Medicine Pulmonary Disease
DX: K44.9 Diaphragmatic hernia without obstruction or gangrene (principal); R91.8 Other nonspecific abnormal finding of lung field; R91.1 Solitary pulmonary nodule
CPT/HCPCS: 71250

== ENCOUNTER → 2018-01-06 | Outpatient (CLI) | payer BC | END | disposition home or self-care (01) | LOC: KCIC CT 09:45 | DX: J32.0 Chronic maxillary sinusitis (principal) | CPT/HCPCS: 70486 ==